=== PATIENT | female | born 1950 | race Caucasian/White ===

== ENCOUNTER 2017-04-01 18:13 | Emergency (ER) | payer MEDICAID, MEDICARE, OTHER ==
[~2017-04-01] VITALS: Ht 167.6 cm; Wt 61.2 kg
[~2017-04-01 18:13] MED LIST: AMLO10TA4 PO; AMYL1CAP58 PO; ARIP2TAB9 PO; BENA20TA2 PO; BUPR150T12 PO; DEXL30CA3 PO; DULO20CA PO; ESCI10TA PO; FURO20TA4 PO; GABA300C PO; HYDR12.519 PO; HYDR1TAB PO; LEVO25TA9 PO; METO5TAB87 PO; OMEP20CA10 PO; PRIM50TA PO; RANI150C4 PO; RISE35TA PO; SIMV20TA6 PO
--- NOTE | 2017-04-01 18:22 | NUR ---
PT BIBRA FROM HOME TO ER BED 12. PRESENTS W/ R FOOT LAC APPROX 5 CM W/ MINIMAL BLEEDING NOTED. PT NOT UTD W/ TETANUS SHOT. PT AAOX3. NAD NOTED. AWAITING MD WALKER.
[2017-04-01] MEDS ORDERED: LIDOCAINE 1%-EPI 1:100,000 50 ML VIAL IJ ONE (18:30)
[2017-04-01] MEDS ORDERED: TDAP [DIPH/PERTUSSIS/TET] 0.5 ML VIAL IM ONE ×2 (18:30→19:36)
--- NOTE | 2017-04-01 18:54 | NUR ---
RADIOLOGY AT BEDSIDE FOR R FOOT XRAY.
[2017-04-01] MEDS ORDERED: LIDOCAINE 1% INJ 50 ML MDV IJ ONE (19:21)
--- NOTE | 2017-04-01 19:29 | NUR ---
JUSTO GLYNN FOR FOOT X RAY RESULT
--- NOTE | 2017-04-01 19:50 | NUR ---
JESICA CNC MILL OPERATOR AT BEDSIDE FOR LAC REPAIR.
[2017-04-01] MEDS ORDERED: ACETAMINOPHEN ES 500 MG TABLET PO ONE (20:30)
[2017-04-01] MEDS ORDERED: CEPHALEXIN MONOHYDRATE 500 MG CAPSULE PO ONE ×2 (20:30→20:39)
[2017-04-01] MEDS ORDERED: ACETAMINOPHEN ES 500 MG TABLET ONE (20:39)
--- NOTE | 2017-04-01 20:44 | NUR ---
WOUND CARE PROVIDED. PT PROVIDED W/ CROUTCHES. D/C HOME STABLE CONDITION.
[2017-04-01 20:46] VITALS: BP 132/80
== END 2017-04-01 20:47 | disposition home or self-care (01) ==
LOC: ER 18:15
DX: S91.311A Laceration without foreign body, right foot, initial encounter (principal); I10 Essential (primary) hypertension; F17.210 Nicotine dependence, cigarettes, uncomplicated; Z98.82 Breast implant status; Z88.0 Allergy status to penicillin; Z88.6 Allergy status to analgesic agent; W22.8XXA Striking against or struck by other objects, initial encounter; Y93.89 Activity, other specified; Y92.89 Other specified places as the place of occurrence of the external cause; Y99.8 Other external cause status
CPT/HCPCS: 12002; 73630; 90471; 90715; 99284; A4606; A6402; J3490; Z7610

== ENCOUNTER 2018-03-02 12:32 | Emergency (ER) | payer OTHER ==
[~2018-03-02] VITALS: Ht 167.6 cm; Wt 63.5 kg
[~2018-03-02 12:32] MED LIST changes: +ARIP2TAB3 PO; -ARIP2TAB9 PO; -BENA20TA2 PO; +BENA20TA9 PO
--- NOTE | 2018-03-02 12:35 | NUR ---
AAOX3, BIB RA 881 FROM HOME, RIGHT HIP PAIN SINCE LAST NIGHT,NO TRAUMA. RR IS EVEN AND UNLABORED WITH NAD NOTED. SKIN IS WARM AND DRY. AWAITING MD FOR EVAL.
[2018-03-02] MEDS ORDERED: ONDANSETRON 4 MG TAB.RAPDIS PO ONE (13:30)
[2018-03-02] MEDS ORDERED: MORPHINE SULFATE INJ 2 MG/ML DISP.SYRIN IM ONE (13:30)
--- NOTE | 2018-03-02 13:45 | NUR ---
Patient is resting comfortably in bed with eyes closed. Easily aroused. VSS
[2018-03-02] MEDS ORDERED: ONDANSETRON 4 MG TAB.RAPDIS ONE (13:53)
[2018-03-02] MEDS ORDERED: MORPHINE SULFATE INJ 4 MG/ML DISP.SYRIN ONE (13:53)
--- NOTE | 2018-03-02 15:17 | NUR ---
Patient discharged to home in stable condition. Written and verbal after care instructions given. Patient verbalizes understanding of instruction.
[2018-03-02 15:20] VITALS: BP 116/76
== END 2018-03-02 15:21 | disposition home or self-care (01) ==
LOC: ER 12:34
DX: M25.551 Pain in right hip (principal); M25.552 Pain in left hip; I10 Essential (primary) hypertension; F12.90 Cannabis use, unspecified, uncomplicated; F17.210 Nicotine dependence, cigarettes, uncomplicated; Z98.82 Breast implant status; Z88.0 Allergy status to penicillin; Z88.6 Allergy status to analgesic agent; Z60.2 Problems related to living alone; Z79.899 Other long term (current) drug therapy
CPT/HCPCS: 73521; A4606; J2270; Q0162; Z7610

== ENCOUNTER 2018-07-02 15:02 | Emergency (ER) | payer MEDICARE, MEDICAID ==
[~2018-07-02] VITALS: Ht 165.1 cm; Wt 68.9 kg
--- NOTE | 2018-07-02 15:09 | NUR ---
PT BIBRA FROM HOME C/O CHEST PAIN WHILE WATCHING TV. GIVEN NTG AND ASA SATELLITE TV TECHNICIAN. PT AAOX4, RESPIRATIONS EVEN AND UNLABORED, NO SOB, NAD NOTED. VSS. PT ON MONITOR, MD AT BEDSIDE
[2018-07-02 15:43] LABS: BASOPHILS # (AUTO) 0.1 /CMM (0.0-0.2); BASOPHILS % (AUTO) 0.5 % (0.0-2.0); EOSINOPHILS % (AUTO) 0.3 % (0.0-6.0); HEMATOCRIT 39 % (33-45); HEMOGLOBIN 12.9 g/dL (11.5-14.8); LYMPHOCYTES # (AUTO) 16.9 /CMM (0.8-4.8); LYMPHOCYTES % (AUTO) 74.1 % (20.0-44.0); MEAN CORPUSCULAR HGB CONC 33 g/dl (31.0-36.0); MEAN CORPUSCULAR VOLUME 95 fL (82-100); MONOCYTES # (AUTO) 0.6 /CMM (0.1-1.30); MONOCYTES % (AUTO) 2.6 % (2.0-12.0); NEUTROPHILS # (AUTO) 5.1 /CMM (1.8-8.9); NEUTROPHILS % (AUTO) 22.5 % (43.0-81.0); PLATELET COUNT (AUTO) 138 /CMM (150-450); RED BLOOD CELL COUNT(AUTO) 4.13 MIL/uL (4.0-5.2); WHITE BLOOD COUNT (AUTO) 22.8 K/uL (4.3-11.0)
[2018-07-02 15:55] LABS: CALCIUM, SERUM 8.4 mg/dL (8.5-10.1); CARBON DIOXIDE 29 mmol/L (21-32); CHLORIDE 107 mmol/L (98-107); CREATININE 0.9 mg/dL (0.6-1.3); GLUCOSE 91 mg/dL (74-106); POTASSIUM 4.6 mmol/L (3.5-5.1); SODIUM SERUM 140 mmol/L (136-145); UREA NITROGEN, BLOOD 20 mg/dL (7-18)
[2018-07-02 17:08] LABS: BAND % (MANUAL) 1 % (0.0-5.0); BASOPHILS % (MANUAL) 0 % (0.0-2.0); EOSINOPHILS % (MANUAL) 0 % (0-4); LYMPHOCYTES % (MANUAL) 66 % (16-48); MONOCYTES % (MANUAL) 2 % (0-11.0); NEUTROPHILS % (MANUAL) 31 (42-76)
--- NOTE | 2018-07-02 17:24 | NUR ---
Patient discharged to home in stable condition. Written and verbal after care instructions given. Patient verbalizes understanding of instruction. IV removed. Catheter intact and site benign. Pressure and 4x4 applied to site. No bleeding noted.
[2018-07-02 17:25] VITALS: BP 119/80
== END 2018-07-02 17:27 | disposition home or self-care (01) ==
LOC: ER 15:10
DX: R07.89 Other chest pain (principal); D72.829 Elevated white blood cell count, unspecified; I10 Essential (primary) hypertension; M79.606 Pain in leg, unspecified; F10.10 Alcohol abuse, uncomplicated; F17.200 Nicotine dependence, unspecified, uncomplicated; F12.10 Cannabis abuse, uncomplicated; Y90.9 Presence of alcohol in blood, level not specified; Z98.86 Personal history of breast implant removal; Z88.0 Allergy status to penicillin; Z88.6 Allergy status to analgesic agent; Z60.2 Problems related to living alone
CPT/HCPCS: 36415; 71045-TC; 80048-TC; 84484-TC; 85025-TC

== ENCOUNTER 2018-08-04 11:21 | Emergency (ER) | payer MEDICAID, MEDICARE, OTHER ==
[~2018-08-04] VITALS: Ht 165.1 cm; Wt 73.5 kg
--- NOTE | 2018-08-04 11:40 | NUR ---
SEEN AND EXAMINED BY DR. DE LA GARZA.
[2018-08-04] MEDS ORDERED: FAMOTIDINE/PF INJ 20 MG/2 ML VIAL IV ONE (11:51)
[2018-08-04] MEDS ORDERED: methylPREDNISolone SOD SUCC 125 MG/2ML VIAL ONE (11:51)
[2018-08-04] MEDS ORDERED: diphenhydrAMINE HCL 50 MG/ML VIAL ONE (11:51)
[2018-08-04] MEDS: diphenhydrAMINE HCL 50 MG/ML VIAL IV ONE (11:56)
[2018-08-04] MEDS: FAMOTIDINE/PF INJ 20 MG/2 ML VIAL IV ONE (11:56)
[2018-08-04] MEDS: methylPREDNISolone SOD SUCC 125 MG/2ML VIAL IV ONE (11:57)
--- NOTE | 2018-08-04 11:57 | NUR ---
ALL MEDS GIVEN, KEPT RESTED AND COMFORTABLE, WILL CONTINUE TO MONITOR.
--- NOTE | 2018-08-04 12:58 | NUR ---
PT IS ASLEEP ON BED, EASILY AROUSABLE AND NO NOTED ITCHNESS.
[2018-08-04 13:50] VITALS: BP 133/72
--- NOTE | 2018-08-04 13:50 | NUR ---
IV removed. Catheter intact and site benign. Pressure and 4x4 applied to site. No bleeding noted.Patient discharged to home in stable condition. Written and verbal after care instructions given. Patient verbalizes understanding of instruction.
== END 2018-08-04 13:51 | disposition home or self-care (01) ==
LOC: ER 11:29
DX: L50.9 Urticaria, unspecified (principal); I10 Essential (primary) hypertension; F10.10 Alcohol abuse, uncomplicated; F12.10 Cannabis abuse, uncomplicated; F17.210 Nicotine dependence, cigarettes, uncomplicated; Y90.9 Presence of alcohol in blood, level not specified; Z60.2 Problems related to living alone; Z98.82 Breast implant status; Z88.6 Allergy status to analgesic agent
CPT/HCPCS: 96374; 96375; 99283; A4606; J1200; J2930; J3490

== ENCOUNTER 2019-07-02 09:23 | Inpatient (IN) | payer OTHER ==
[~2019-07-02] VITALS: Ht 162.6 cm; Wt 62.6 kg
[~2019-07-02 09:23] MED LIST changes: -OMEP20CA10 PO; +OMEP20CA15 PO; +SIMV-46 PO; -SIMV20TA6 PO
--- NOTE | 2019-07-02 09:34 | NUR ---
bibra home c/o pressure like chest pain upon waking up at around 0700. Patient presented with IV line on left ac G20. Attached to the playground monitor, changed into gown. Dr. Mcfarland at bedside for eval. Patient's blood drawn and sent to lab.
--- NOTE | 2019-07-02 09:35 | NUR ---
BLOOD DRAWN SENT TO LAB
--- NOTE | 2019-07-02 09:38 | NUR ---
EMT TECH AT BEDSIDE FOR EKG.
[2019-07-02 09:44] LABS: BASOPHILS # (AUTO) 0.1 /CMM (0.0-0.2); BASOPHILS % (AUTO) 0.4 % (0.0-2.0); EOSINOPHILS % (AUTO) 0.3 % (0.0-6.0); HEMATOCRIT 40 % (33-45); LYMPHOCYTES # (AUTO) 14.5 /CMM (0.8-4.8); LYMPHOCYTES % (AUTO) 68.8 % (20.0-44.0); MEAN CORPUSCULAR HGB CONC 33 g/dl (31.0-36.0); MEAN CORPUSCULAR VOLUME 93 fL (82-100); MONOCYTES # (AUTO) 0.6 /CMM (0.1-1.30); MONOCYTES % (AUTO) 2.6 % (2.0-12.0); NEUTROPHILS # (AUTO) 5.9 /CMM (1.8-8.9); NEUTROPHILS % (AUTO) 27.9 % (43.0-81.0); PLATELET COUNT (AUTO) 154 /CMM (150-450)
--- NOTE | 2019-07-02 09:45 | NUR ---
PROGRAM CLINICIAN AT BEDSIDE FOR XRAY
[2019-07-02 09:48] LABS: CARBON DIOXIDE 26 mmol/L (21-32); CHLORIDE 105 mmol/L (98-107); CREATININE 0.9 mg/dL (0.6-1.3); GLUCOSE 101 mg/dL (74-106); POTASSIUM 3.8 mmol/L (3.5-5.1); SODIUM SERUM 141 mmol/L (136-145); UREA NITROGEN, BLOOD 20 mg/dL (7-18)
[2019-07-02 09:54] LABS: ALANINE AMINOTRANSFERASE 26 U/L (12-78); ALBUMIN 3.5 g/dL (3.4-5.0); ALKALINE PHOSPHATASE 90 U/L (46-116); ASPARTATE AMINOTRANSFERASE 23 U/L (15-37); BILIRUBIN,DIRECT 0.1 mg/dL (0.0-0.2); BILIRUBIN,TOTAL 0.5 mg/dL (0.2-1.0); TOTAL PROTEIN, SERUM 6.6 g/dL (6.4-8.2)
[2019-07-02 10:15] LABS: LYMPHOCYTES % (MANUAL) 69 % (16-48); MONOCYTES % (MANUAL) 1 % (0-11.0); NEUTROPHILS % (MANUAL) 30 (42-76)
[2019-07-02 11:05] LABS: APPEARANCE,URINE Clear (CLEAR); BILIRUBIN,URINE Negative (NEGATIVE); BLOOD, URINE Trace-lysed Ery/uL (NEGATIVE); COLOR,URINE Yellow (YELLOW); KETONES,URINE Negative (NEGATIVE); LEUKOCYTE ESTERASE ,URINE Negative (NEGATIVE); NITRITE, URINE Negative (NEGATIVE); PROTEIN,URINE Negative (NEGATIVE); UGLUCOSE Negative (NEGATIVE)
[2019-07-02 11:08] LABS: BACTERIA,URINE None seen /HPF (None Seen); SQUAMOUS EPITHELIAL CELL,UR Rare /HPF (None Seen); WBC,URINE 0-2 /HPF (0-3)
--- NOTE | 2019-07-02 11:30 | NUR ---
[facility] SPECIAL EDUCATION MATH TEACHER INFORMED BY ADMITTING REGARDING ADMISSION,CLINICALS FAXED
--- NOTE | 2019-07-02 11:40 | NUR ---
CALLED ADMITTING, NO UPDATE FROM [facility] GOLF COURSE KEEPER REGARDING TRANSFER
--- NOTE | 2019-07-02 11:45 | NUR ---
Gary tyson in [facility] - 07/02/19 at 1145 by JAKY CALLED UROLOGIST RASHEL APODACA VOICEMAIL
--- NOTE | 2019-07-02 13:28 | NUR ---
SPOKE TO DR JOHNSON REGARDING ADMISSION, STATES WILL CALL [facility] AND FOLLOW UP
--- NOTE | 2019-07-02 13:50 | NUR ---
DR. JOHNSON- PAGED - TO CALL [phone]
--- NOTE | 2019-07-02 13:58 | NUR ---
NO CALL BACK FROM DR JOHNSON REGARDING TRANSFER
--- NOTE | 2019-07-02 14:38 | NUR ---
REPORT GIVEN TO KIMI MONIQUE.
[2019-07-02] MEDS ORDERED: IV NS 0.9% 1,000 ML IV PRN (14:39)
--- NOTE | 2019-07-02 14:50 | NUR ---
PATIENT TRANSFERRED TO ROOM 309-1 VIA ACLS PROTOCOL. NO DISTRESS NOTED. AMBULATORY WITH STEADY GAIT.
[2019-07-02] MEDS ORDERED: MAGNESIUM HYDROXIDE 30 ML UDC PO PRN (15:00)
[2019-07-02] MEDS ORDERED: Z GUARD REMEDY 2 OZ OINT TP PRN (15:00)
[2019-07-02] MEDS ORDERED: ONDANSETRON HCL/PF 4 MG/2 ML VIAL IVP PRN (15:00)
[2019-07-02] MEDS ORDERED: HYDROCODONE/APAP 5/325MG 1 EACH TABLET PO PRN (15:00)
[2019-07-02] MEDS ORDERED: MAG HYDROX/AL HYDROX/SIMETH 30 ML UDC PO PRN (15:00)
[2019-07-02] MEDS ORDERED: ACETAMINOPHEN 325 MG TABLET PO PRN (15:00)
--- NOTE | 2019-07-02 15:00 | NUR ---
TELE/RN NOTE RECEIVED THE PATIENT ON A GURNEY. ASSISTED THE PATIENT TO GET TO BED. PATIENT IS ALERT AND ORIENTED X4. IN ROOM AIR AND DENIES SOB. RESPIRATION REGULAR AND UNLABORED. DENIES PAIN. THE PATIENT IS IN NO APPARENT DISTRESS. LAC G 18 PATENT AND SALINE LOCKED. PATIENT IS GIVEN ORIENTATION TO THE ROOM AND UNIT, SHE VERBALIZED UNDERSTANDING. BED LOW AND LOCKED. SIDE RAILS UP X3. CALL LIGHT WITHIN REACH. WILL CONTINUE TO MONITOR.
--- NOTE | 2019-07-02 15:51 | NUR ---
TELE/RN NOTE RECEIVED ORDER FROM DR POWELL FOR CARDIAC DIET. THE ORDER IS READ BACK, VERIFIED. NOTED AND CARRIED OUT.
[2019-07-02 16:00] VITALS: BP 131/86
--- NOTE | 2019-07-02 18:11 | NUR ---
TELE/RN NOTE THE PATIENT IS ALERT AND ORIENTED X4. DENIES SOB. RESPIRATION REGULAR AND UNLABORED. PATIENT IS IN ROOM AIR. DENIES PAIN. THE PATIENT IS IN NO APPARENT DISTRESS. LAC G 18 PATENT AND SALINE LOCKED. BED LOW AND LOCKED. SIDE RAILS UP X3. CALL LIGHT WITHIN REACH. WILL ENDORSE TO TOOLMAKER GRADE THREE. Addendum: 07/02/19 at 1812 by RICHARD HONG RN TELE/RN NOTE EXTERNAL TELE BOX READING IS SR 78 WITH PAC AND PVC.
--- NOTE | 2019-07-02 19:00 | NUR ---
RECIEVED in bed alert and orientated X3. She commented she wants to go home and she is dressed in her street clothes. Instructed her to stay in bed and we will decide tomorrow. She appears somewhat confused of the situation. She know her name and where she is and that it is night time, but will say "what should I do now" "When should I go" Sitter at the bedside
[2019-07-02 20:00] VITALS: BP 156/84
--- NOTE | 2019-07-03 06:08 | NUR ---
Ending NOTES: Noted about 1899 forgetfulness and some confusion setting in. She wanted to go home , but she knew she was in a hospital. She dressed in her street clothes because ahe was adament she was going home. She is cooperative and would go back to bed when we told her, she moves fast when she gets OOB sitter at the bedside, d/t she walks to the elevator "Because she is Going Home" she is pleasent . On the monitor she is SR with PAC + PVCs Room air
--- NOTE | 2019-07-03 07:00 | NUR ---
Tele/RN Opening Note Received Pt AO x 4, able to responds all stimuli. Denies pain or discomfort, respiratory even and unlabored, intact IV site. Kept lower position of the bed with elevated HOB. Sitter at bed side. Call light within reach, will continue to monitor.
[2019-07-03 08:00] VITALS: BP 154/98
[2019-07-03] MEDS ORDERED: ASPIRIN 81 MG TAB.CHEW PO SCH ×2 (09:00→11:00)
[2019-07-03] MEDS ORDERED: ATORVASTATIN 10 MG TABLET PO SCH (09:00)
[2019-07-03] MEDS ORDERED: IOHEXOL-350 100 ML VIAL IV ONE (11:30)
[2019-07-03] MEDS ORDERED: IV NS 0.9% 250 ML IV ONE (11:30)
[2019-07-03] MEDS ORDERED: METOPROLOL TARTRATE INJ 5 MG/5 ML AMPUL ONE (11:43)
[2019-07-03] MEDS: METOPROLOL TARTRATE INJ 5 MG/5 ML AMPUL IVP PRN ×2 (11:48→11:53)
[2019-07-03] MEDS ORDERED: NITROGLYCERIN 0.4 MG/TAB BOTTLE SL ONE (12:00)
[2019-07-03] MEDS ORDERED: NITROGLYCERIN 4.9 GM SPRAY SL ONE (12:00)
[2019-07-03] MEDS ORDERED: METOPROLOL TARTRATE 50 MG TABLET PO SCH (12:00)
--- NOTE | 2019-07-03 12:10 | NUR ---
Patient back from CT angiogram, on stable condition, denies any pain or discomfort. V/S:130/74, p-57, t-97.3, r-18.
[2019-07-03 15:16] LABS: BASOPHILS # (AUTO) 0.1 /CMM (0.0-0.2); BASOPHILS % (AUTO) 0.3 % (0.0-2.0); EOSINOPHILS % (AUTO) 0.2 % (0.0-6.0); HEMATOCRIT 39 % (33-45); HEMOGLOBIN 12.5 g/dL (11.5-14.8); MEAN CORPUSCULAR HGB CONC 32 g/dl (31.0-36.0); MEAN CORPUSCULAR VOLUME 93 fL (82-100); MONOCYTES # (AUTO) 0.3 /CMM (0.1-1.30); MONOCYTES % (AUTO) 1.7 % (2.0-12.0); NEUTROPHILS # (AUTO) 5.4 /CMM (1.8-8.9); NEUTROPHILS % (AUTO) 28.8 % (43.0-81.0); PLATELET COUNT (AUTO) 134 /CMM (150-450); RED BLOOD CELL COUNT(AUTO) 4.14 MIL/uL (4.0-5.2); WHITE BLOOD COUNT (AUTO) 18.8 K/uL (4.3-11.0)
[2019-07-03 15:27] LABS: CALCIUM, SERUM 8.5 mg/dL (8.5-10.1); CREATININE 0.9 mg/dL (0.6-1.3); MAGNESIUM 2.2 mg/dL (1.8-2.4); PHOSPHORUS 4.1 mg/dL (2.5-4.9); POTASSIUM 4.5 mmol/L (3.5-5.1)
[2019-07-03 16:00] VITALS: BP 133/81
--- NOTE | 2019-07-03 16:00 | NUR ---
Dr. Gómez made aware regarding CT angiogram result was negative.
--- NOTE | 2019-07-03 16:45 | NUR ---
Given discharge instruction include medications schedule, side effect, smoking cession. Pt denies chest pain or any discomfort. Skin is warm to touch, no sob or distress observed. Pt left facility accompanied by daughter and staff to the private car.
== END 2019-07-03 16:51 | disposition home or self-care (01) | DRG 313 ==
LOC: ER 09:24 → TELE 15:08
PROVIDERS: ADMIT Internal Medicine; ATTEND Internal Medicine
DX: R07.89 Other chest pain (principal); N17.0 Acute kidney failure with tubular necrosis; J44.9 Chronic obstructive pulmonary disease, unspecified; E78.5 Hyperlipidemia, unspecified; D72.829 Elevated white blood cell count, unspecified; I10 Essential (primary) hypertension; Z98.82 Breast implant status; F17.210 Nicotine dependence, cigarettes, uncomplicated
CPT/HCPCS: 36415; 71045-TC; 75574; 80048-TC; 80076-TC; 81000-TC; 82378; 83735-TC; 84100-TC; 84484-TC; 85025-TC; 87040-TC; 87081-TC; 93307-TC; G0378; J3490; J7030; J7050; Q9967

== ENCOUNTER 2019-10-30 11:20 | Emergency (ER) | payer OTHER ==
[~2019-10-30] VITALS: Ht 165.1 cm; Wt 61.2 kg
[2019-10-30] MEDS ORDERED: LIDOCAINE HCL/PF 1% 30 ML SDV ONE (11:47)
--- NOTE | 2019-10-30 11:50 | NUR ---
BIBS FROM HOME TO ER BED 12. AAOX4. NOT IN RESP DISTRESS. AMBUALTORY. CAME IN FOR LACERATION ON R HAND 2ND DIGIT FINGER S/P DOG BITE LAST NIGHT. NOTED 2.5 CM LONG WOUND, UNAPPROXIMATED, NOT ACTIVELY BLEEDING, NO DISCHARGE. ROM INTACT. DOG BELONGS TO PT AND WAS REPORT NOT UPTO DATE WITH SHOT. MD WAS AT BEDSIDE FOR EVAL. EMT AT BEDSIDE FOR WOUND CLEANING. LACERATION KIT AT BEDSIDE
[2019-10-30] MEDS ORDERED: TDAP [DIPH/PERTUSSIS/TET] 0.5 ML VIAL IM ONE ×2 (11:57→12:00)
--- NOTE | 2019-10-30 12:36 | NUR ---
Patient discharged to home in stable condition. Written and verbal after care instructions given. Patient verbalizes understanding of instruction. Pt ambulatory with a steady gait
[2019-10-30 12:37] VITALS: BP 104/69
== END 2019-10-30 12:38 | disposition home or self-care (01) ==
LOC: ER 11:20
DX: S61.210A Laceration without foreign body of right index finger without damage to nail, initial encounter (principal); I10 Essential (primary) hypertension; F17.210 Nicotine dependence, cigarettes, uncomplicated; Z98.890 Other specified postprocedural states; Z88.0 Allergy status to penicillin; Z88.6 Allergy status to analgesic agent; Z60.2 Problems related to living alone; W54.0XXA Bitten by dog, initial encounter; Y93.89 Activity, other specified; Y92.89 Other specified places as the place of occurrence of the external cause; Y99.8 Other external cause status
CPT/HCPCS: 12002; 90471; 90715; 99283; J3490

== ENCOUNTER → 2019-11-01 | Emergency (ER) | payer OTHER ==
[~2019-11-01] VITALS: Ht 165.1 cm; Wt 60.8 kg
[2019-11-01 10:30] VITALS: BP 133/88
--- NOTE | 2019-11-01 10:55 | NUR ---
WOUND EVALUATED BY DR RUELAS,CLEANSED/DRESSED,TOLERATED WELL
--- NOTE | 2019-11-01 11:06 | NUR ---
Patient discharged to home in stable condition. Written and verbal after care instructions given. Patient verbalizes understanding of instruction.
== END | disposition home or self-care (01) ==
LOC: ER 10:26
DX: S61.210D Laceration without foreign body of right index finger without damage to nail, subsequent encounter (principal); I10 Essential (primary) hypertension; Z98.82 Breast implant status; Z88.0 Allergy status to penicillin; Z88.6 Allergy status to analgesic agent; Z60.2 Problems related to living alone; W54.0XXD Bitten by dog, subsequent encounter
CPT/HCPCS: 99282; A6403

== ENCOUNTER 2020-11-08 09:32 | Emergency (ER) | payer OTHER ==
[~2020-11-08] VITALS: Ht 162.6 cm; Wt 64.0 kg
--- NOTE | 2020-11-08 09:32 | NUR ---
PT NIUBU216 HOME, ABDOMINAL PAIN. PER CAREGIVER NO BM X 2 DAYS. PT IS AAOX3, NOT IN RESPIRATORY DISTRESS, V/S STABLE, KEPT RESTED AND COMFORTABLE. WILL CONTINUE TO MONITOR.
--- NOTE | 2020-11-08 09:40 | NUR ---
PT IV LINE ESTABLISHED BLOOD DRAWN AND SENT TO LAB.
--- NOTE | 2020-11-08 09:44 | NUR ---
SEEN AND EXAMINED BY .
--- NOTE | 2020-11-08 09:47 | NUR ---
FARROWING WORKER AT BEDSIDE FOR XRAY.
[2020-11-08] MEDS ORDERED: MAG HYDROX/AL HYDROX/SIMETH 30 ML UDC ONE (09:51)
[2020-11-08] MEDS ORDERED: LIDOCAINE VISCOUS 2% UD 15 ML UDC ONE (09:51)
[2020-11-08] MEDS ORDERED: FAMOTIDINE/PF INJ 20 MG/2 ML VIAL IV ONE ×2 (09:52→10:00)
--- NOTE | 2020-11-08 09:58 | NUR ---
URINAL GIVEN BUT UNABLE TO PROVIDE URINE SPECIMEN THIS TIME.
[2020-11-08] MEDS ORDERED: IV NS 0.9% 500 ML BAG IV ONE (10:00)
[2020-11-08] MEDS ORDERED: MAG HYDROX/AL HYDROX/SIMETH 30 ML UDC PO ONE (10:00)
[2020-11-08] MEDS ORDERED: LIDOCAINE VISCOUS 2% UD 15 ML UDC MM ONE (10:00)
[2020-11-08 10:02] LABS: BASOPHILS # (AUTO) 0.1 /CMM (0.0-0.2); BASOPHILS % (AUTO) 0.3 % (0.0-2.0); EOSINOPHILS % (AUTO) 0.3 % (0.0-6.0); HEMATOCRIT 42 % (33-45); HEMOGLOBIN 13.5 g/dL (11.5-14.8); LYMPHOCYTES % (AUTO) 78.8 % (20.0-44.0); MEAN CORPUSCULAR HGB CONC 33 g/dl (31.0-36.0); MEAN CORPUSCULAR VOLUME 95 fL (82-100); MONOCYTES # (AUTO) 0.8 /CMM (0.1-1.30); MONOCYTES % (AUTO) 2.5 % (2.0-12.0); NEUTROPHILS # (AUTO) 5.5 /CMM (1.8-8.9); NEUTROPHILS % (AUTO) 18.1 % (43.0-81.0); PLATELET COUNT (AUTO) 181 /CMM (150-450); RED BLOOD CELL COUNT(AUTO) 4.38 MIL/uL (4.0-5.2)
[2020-11-08 10:06] LABS: CALCIUM, SERUM 9.3 mg/dL (8.5-10.1); POTASSIUM 4.7 mmol/L (3.5-5.1); WHITE BLOOD COUNT (AUTO) 30.4 K/uL (4.3-11.0)
[2020-11-08 10:12] LABS: ALBUMIN 3.7 g/dL (3.4-5.0); BILIRUBIN,DIRECT 0.1 mg/dL (0.0-0.2); BILIRUBIN,TOTAL 0.3 mg/dL (0.2-1.0); TOTAL PROTEIN, SERUM 7.2 g/dL (6.4-8.2)
--- NOTE | 2020-11-08 10:15 | NUR ---
PT IS WHEELED TO CT SCAN VIA [facility].
[2020-11-08] MEDS ORDERED: LEVOFLOXACIN 750 MG /D5W 150ML PIGGYBACK IV ONE (10:30)
[2020-11-08] MEDS ORDERED: FLAGYL/NS RTU 500 MG/100 ML PIGGYBACK IV ONE (10:30)
--- NOTE | 2020-11-08 10:33 | NUR ---
COVID SWAB DONE AND SENT TO THE LAB
[2020-11-08] MEDS ORDERED: LEVOFLOXACIN 750 MG /D5W 150ML 150 ML IV ONE (10:34)
[2020-11-08] MEDS ORDERED: METRONIDAZOLE 500MG/ NS 100ML 100 ML IV ONE (10:34)
[2020-11-08 11:04] LABS: LYMPHOCYTES % (MANUAL) 79 % (16-48); MONOCYTES % (MANUAL) 4 % (0-11.0); NEUTROPHILS % (MANUAL) 17 (42-76)
[2020-11-08] MEDS ORDERED: DULO40CA7 PO (11:17)
[2020-11-08] MEDS ORDERED: DONE10TA44 PO (11:17)
[2020-11-08] MEDS ORDERED: METO-357 PO (11:17)
[2020-11-08] MEDS ORDERED: SIMV-46 PO (11:17)
[2020-11-08] MEDS ORDERED: BENA20TA9 PO (11:17)
[2020-11-08] MEDS ORDERED: MEMA10TA56 PO (11:17)
[2020-11-08] MEDS ORDERED: PANT40TA49 PO (11:17)
[2020-11-08 11:22] LABS: BILIRUBIN,URINE NEGATIVE (NEGATIVE); COLOR,URINE YELLOW (YELLOW); LEUKOCYTE ESTERASE ,URINE NEGATIVE (NEGATIVE); NITRITE, URINE NEGATIVE (NEGATIVE); PROTEIN,URINE TRACE mg/dl (NEGATIVE); UGLUCOSE NEGATIVE (NEGATIVE); UROBILINOGEN,URINE 0.2 EU/dL (0.2)
--- NOTE | 2020-11-08 11:28 | NUR ---
LAB CALLED PT COVID RESULT NEGATIVE (-)
--- NOTE | 2020-11-08 11:33 | NUR ---
CAMILA DAUGHTER [phone]
[2020-11-08 11:47] LABS: BACTERIA,URINE Few /HPF (None Seen); SQUAMOUS EPITHELIAL CELL,UR Moderate /HPF (None Seen); WBC,URINE 0-2 /HPF (0-3)
--- NOTE | 2020-11-08 14:19 | NUR ---
GOING TO [facility] BED 207. B # FOR REPORT [phone]/ LANG MONIQUE PENDING TRANSPORT ETA.
--- NOTE | 2020-11-08 14:30 | NUR ---
HEALTH CONCIERGE BY NIKA AT 1600
--- NOTE | 2020-11-08 14:59 | NUR ---
REPORT GIVEN TO ENEIDA REID OF [facility] FOR [facility].
[2020-11-08 16:30] VITALS: BP 127/72
--- NOTE | 2020-11-08 16:40 | NUR ---
REPORT GIVEN TO EMS FOR PT TRANSFER TO [facility].
== END 2020-11-08 16:43 | disposition short-term general hospital (02) ==
LOC: ER 09:33
DX: R10.13 Epigastric pain (principal); K59.00 Constipation, unspecified; D72.829 Elevated white blood cell count, unspecified; F03.90 Unspecified dementia, unspecified severity, without behavioral disturbance, psychotic disturbance, mood disturbance, and anxiety; Z88.6 Allergy status to analgesic agent; Z88.0 Allergy status to penicillin; F17.210 Nicotine dependence, cigarettes, uncomplicated; Z20.822 Contact with and (suspected) exposure to COVID-19
CPT/HCPCS: 36415; 71045; 74176; 76705; 80048; 80076; 81001; 83690; 85007; 85025; 87040 ×2; 87426; 93005; 96361; 96365; 96366; 96368; 96375; 99285; J1956; J3490; J7040; C9803

== ENCOUNTER 2020-11-11 10:49 | Emergency (ER) | payer OTHER ==
[~2020-11-11] VITALS: Ht 162.6 cm; Wt 63.5 kg
[~2020-11-11 10:49] MED LIST changes: -AMLO10TA4 PO; -AMYL1CAP58 PO; -ARIP2TAB3 PO; -BUPR150T12 PO; -DEXL30CA3 PO; +DONE10TA44 PO; -DULO20CA PO; +DULO40CA7 PO; -ESCI10TA PO; -FURO20TA4 PO; -GABA300C PO; -HYDR12.519 PO; -HYDR1TAB PO; -LEVO25TA9 PO; +MEMA10TA56 PO; +METO-357 PO; -METO5TAB87 PO; -OMEP20CA15 PO; +PANT40TA49 PO; -PRIM50TA PO; -RANI150C4 PO; -RISE35TA PO
--- NOTE | 2020-11-11 11:23 | NUR ---
PT TO CT ON ALEJANDRO
--- NOTE | 2020-11-11 11:26 | NUR ---
RAFY TO ER BED 6. AWAKE, ALLERT BUT CONFUSED. AMBULATORY. BROUGHT IN FOR ABDOMINAL PAIN. UPON RECEIVING THE PT SHE IS DENYING TO HAVE AND PAIN. SHE WAS VERBALIZING THAT SHE WANTS TO GO HOME. WAST AT THE BEDSIDE FOR EVAL. ORDERS RECEIVED, NOTED AND CARRIED OUT.
[2020-11-11 11:50] LABS: BASOPHILS # (AUTO) 0.1 /CMM (0.0-0.2); BASOPHILS % (AUTO) 0.4 % (0.0-2.0); EOSINOPHILS % (AUTO) 0.2 % (0.0-6.0); HEMATOCRIT 41 % (33-45); LYMPHOCYTES # (AUTO) 14.5 /CMM (0.8-4.8); LYMPHOCYTES % (AUTO) 65.2 % (20.0-44.0); MEAN CORPUSCULAR HGB CONC 32 g/dl (31.0-36.0); MEAN CORPUSCULAR VOLUME 95 fL (82-100); MONOCYTES % (AUTO) 4.5 % (2.0-12.0); NEUTROPHILS # (AUTO) 6.6 /CMM (1.8-8.9); NEUTROPHILS % (AUTO) 29.7 % (43.0-81.0); PLATELET COUNT (AUTO) 156 /CMM (150-450); RED BLOOD CELL COUNT(AUTO) 4.27 MIL/uL (4.0-5.2); WHITE BLOOD COUNT (AUTO) 22.2 K/uL (4.3-11.0)
[2020-11-11 12:03] LABS: CALCIUM, SERUM 9.9 mg/dL (8.5-10.1); CREATININE 1.3 mg/dL (0.6-1.3); POTASSIUM 3.7 mmol/L (3.5-5.1)
[2020-11-11 12:09] LABS: ALBUMIN 3.7 g/dL (3.4-5.0); BILIRUBIN,DIRECT 0.1 mg/dL (0.0-0.2); BILIRUBIN,TOTAL 0.3 mg/dL (0.2-1.0); TOTAL PROTEIN, SERUM 6.9 g/dL (6.4-8.2)
--- NOTE | 2020-11-11 12:51 | NUR ---
SPOKE WITH [facility] PT'S MENTAL HEALTH ASIAN ART CURATOR WHO CALLED THE PARAMEDICS. ACCORDING TO HER, SHE WAS CRYING AND TOLD HER THAT SHE HAVE ABDOMINAL PAIN. PT WAS NOT COMPLAINING OF ANY PAIN UPON RECEIVING THE PATIENT.
--- NOTE | 2020-11-11 13:05 | NUR ---
WOLF MENDES, ELEPHANT TAMER [phone]
--- NOTE | 2020-11-11 13:05 | NUR ---
MELINDA FLANNERY [facility] [phone]
--- NOTE | 2020-11-11 15:06 | NUR ---
MOVE PACKET TURNED IN.
--- NOTE | 2020-11-11 17:00 | NUR ---
KIRA TORRES ([facility]) - [phone]
--- NOTE | 2020-11-11 17:41 | NUR ---
Patient does not wish to proceed with medical care recommended by Dr. Ruben Amaya. Patient given information related to possible complications, up to and including , which could occur as a result of leaving the hospital at this time. Patient verbalizes understanding of risks involved due to leaving against medical advice. Patient has signed AMA form.
--- NOTE | 2020-11-11 17:42 | NUR ---
pt is being picked up by a family member that was sent by the daughter to do so. Pt do acknowledge that she knows Miriam Pitts. Pt is ambulatory on steady gait.
[2020-11-11 17:49] VITALS: BP 117/65
== END 2020-11-11 17:50 | disposition left against medical advice (07) ==
LOC: ER 10:49
DX: R10.9 Unspecified abdominal pain (principal); F03.90 Unspecified dementia, unspecified severity, without behavioral disturbance, psychotic disturbance, mood disturbance, and anxiety; D72.829 Elevated white blood cell count, unspecified; R41.0 Disorientation, unspecified; I10 Essential (primary) hypertension; F10.10 Alcohol abuse, uncomplicated; F17.200 Nicotine dependence, unspecified, uncomplicated; Y90.9 Presence of alcohol in blood, level not specified; Z60.2 Problems related to living alone; Z98.82 Breast implant status; Z88.0 Allergy status to penicillin; Z88.6 Allergy status to analgesic agent; Z79.899 Other long term (current) drug therapy
CPT/HCPCS: 36415; 71045-TC; 80048-TC; 80076-TC; 83605-TC; 83690-TC; 85025-TC; 87040-TC

== ENCOUNTER 2021-01-05 08:26 | Emergency (ER) | payer OTHER ==
[~2021-01-05] VITALS: Ht 162.6 cm; Wt 62.6 kg
--- NOTE | 2021-01-05 08:42 | NUR ---
BIB RA 39 FROM HOME, "WORSENING RECTAL BLEEDING" PER CAREGIVER. alert and oriented x2. NON LABORED BREATHING. IV @ RIGHT AC BLOOD TAKEN AND SENT TO LAB.
[2021-01-05 08:48] LABS: BASOPHILS # (AUTO) 0.1 K/uL (0.0-0.2); MEAN CORPUSCULAR HGB CONC 32 g/dl (31.0-36.0); NEUTROPHILS # (AUTO) 4.5 K/uL (1.8-8.9); PLATELET COUNT (AUTO) 158 K/uL (150-450)
[2021-01-05 08:51] LABS: BASOPHILS % (AUTO) 0.4 % (0.0-2.0); EOSINOPHILS % (AUTO) 0.6 % (0.0-6.0); HEMATOCRIT 42 % (33-45); HEMOGLOBIN 13.5 g/dL (11.5-14.8); LYMPHOCYTES % (AUTO) 78.6 % (20.0-44.0); MEAN CORPUSCULAR VOLUME 95 fL (82-100); MONOCYTES # (AUTO) 0.6 K/uL (0.1-1.30); MONOCYTES % (AUTO) 2.5 % (2.0-12.0); NEUTROPHILS % (AUTO) 17.9 % (43.0-81.0); WHITE BLOOD COUNT (AUTO) 25.4 K/uL (4.3-11.0)
--- NOTE | 2021-01-05 08:56 | NUR ---
covid swab sent.
[2021-01-05 09:03] LABS: ALBUMIN 3.4 g/dL (3.4-5.0); BILIRUBIN,DIRECT 0.1 mg/dL (0.0-0.2); BILIRUBIN,TOTAL 0.4 mg/dL (0.2-1.0); CALCIUM, SERUM 8.9 mg/dL (8.5-10.1); CREATININE 0.9 mg/dL (0.6-1.3); POTASSIUM 4.5 mmol/L (3.5-5.1); TOTAL PROTEIN, SERUM 6.7 g/dL (6.4-8.2)
[2021-01-05] MEDS ORDERED: CT SWABBABLE VALVE TRANS SET 1 EA INFUS.SET MC ONE (09:35)
[2021-01-05] MEDS ORDERED: IOHEXOL-300 100 ML VIAL IV ONE (09:35)
[2021-01-05] MEDS ORDERED: IV NS 0.9% 250 ML IV ONE (09:35)
[2021-01-05 10:07] LABS: EOSINOPHILS % (MANUAL) 1 % (0-4); LYMPHOCYTES % (MANUAL) 9 % (16-48); MONOCYTES % (MANUAL) 3 % (0-11.0); NEUTROPHILS % (MANUAL) 16 (42-76); REACTIVE LYMPHOCYTES 71 % (0-0)
--- NOTE | 2021-01-05 10:21 | NUR ---
MOVE SHEET SUBMITTED.
--- NOTE | 2021-01-05 10:31 | NUR ---
patient is going to be transfer to [facility].
--- NOTE | 2021-01-05 11:00 | NUR ---
MELINDA FLANNERY [phone] DAUGHTER
--- NOTE | 2021-01-05 11:16 | NUR ---
DR. GRAVES SPEAKING WITH DR. HINDS
--- NOTE | 2021-01-05 11:18 | NUR ---
PATIENT IN BED, RESTING AT THIS TIME.
--- NOTE | 2021-01-05 12:50 | NUR ---
PER LUIS NORIEGA, ACCEPTING INFO: TRANSFER TO [facility] ROOM 304B - # [phone] BLS IS [facility] ETA 20 MINS.
--- NOTE | 2021-01-05 13:02 | NUR ---
report given to Adriano MONIQUE for vane.
--- NOTE | 2021-01-05 14:00 | NUR ---
CALLED [facility] ETA IS 5 MINS
[2021-01-05 14:09] VITALS: BP 110/71
--- NOTE | 2021-01-05 14:10 | NUR ---
patient picked up by private ambulance going to [facility] in no distress.
== END 2021-01-05 14:10 | disposition short-term general hospital (02) ==
LOC: ER 08:33
DX: K92.2 Gastrointestinal hemorrhage, unspecified (principal); D72.829 Elevated white blood cell count, unspecified; I48.91 Unspecified atrial fibrillation; F17.210 Nicotine dependence, cigarettes, uncomplicated; F03.90 Unspecified dementia, unspecified severity, without behavioral disturbance, psychotic disturbance, mood disturbance, and anxiety; I10 Essential (primary) hypertension; J98.11 Atelectasis; Z20.822 Contact with and (suspected) exposure to COVID-19; Z88.0 Allergy status to penicillin; Z79.899 Other long term (current) drug therapy; Z98.82 Breast implant status; I70.0 Atherosclerosis of aorta
CPT/HCPCS: 36415; 71045; 74177; 80048; 80076; 83605; 83690; 85007; 85025; 85730; 86850; 87040 ×2; 87086; 87426; 93005; 99285; J7050; Q9967; C9803

== ENCOUNTER 2021-01-14 04:11 | Inpatient (IN) | payer OTHER ==
[2021-01-14] VITALS (39 sets, daily range): BP systolic 75–108; BP diastolic 27–80
[~2021-01-14] VITALS: Ht 162.6 cm; Wt 59.0 kg
--- NOTE | 2021-01-14 04:16 | NUR ---
pt bibra c/o sob and runny nose xtoday. Pt farsi speaking. Per ems, pt has hx of dementia and daughter unreliable historian. Pt attached to monitor and pox. Skin is warm and moist. MD at bedside for eval. Left ac 20g initiated and blood sent to lab Pt given call light within reach.
[2021-01-14] MEDS ORDERED: methylPREDNISolone SOD SUCC 125 MG/2ML VIAL IV ONE (04:30)
[2021-01-14] MEDS ORDERED: methylPREDNISolone SOD SUCC 125 MG/2ML VIAL ONE (04:42)
[2021-01-14 04:47] LABS: BASOPHILS # (AUTO) 0.1 K/uL (0.0-0.2)
--- NOTE | 2021-01-14 04:47 | NUR ---
Gary tyson in [facility] - 01/14/21 at 0518 by NELLIE rt at bedside
--- NOTE | 2021-01-14 04:47 | NUR ---
Gary tyson in [facility] - 01/14/21 at 0449 by NELLIE xray at bedside
--- NOTE | 2021-01-14 04:47 | NUR ---
rt at bedside
[2021-01-14 04:50] LABS: BASOPHILS % (AUTO) 0.4 % (0.0-2.0); EOSINOPHILS % (AUTO) 0.8 % (0.0-6.0); HEMATOCRIT 39 % (33-45); HEMOGLOBIN 12.8 g/dL (11.5-14.8); LYMPHOCYTES % (AUTO) 49.6 % (20.0-44.0); MEAN CORPUSCULAR HGB CONC 33 g/dl (31.0-36.0); MEAN CORPUSCULAR VOLUME 94 fL (82-100); NEUTROPHILS # (AUTO) 6.9 K/uL (1.8-8.9); NEUTROPHILS % (AUTO) 43.2 % (43.0-81.0); PLATELET COUNT (AUTO) 154 K/uL (150-450); RED BLOOD CELL COUNT(AUTO) 4.12 MIL/uL (4.0-5.2)
[2021-01-14 04:55] LABS: ABG BASE EXCESS 1.2 mmol/L; ABG OXYGEN SATURATION 96.5 % (92.0-98.5); ABG PCO2 47.7 mmHg (35.0-45.0); ABG PH 7.372 (7.350-7.450); ABG PO2 91.8 mmHg (75.0-100.0); AaDO2 80.6 mmHg; COHb 0.8 % (0.5-1.5); MetHb 0.3 % (0.0-1.5); O2Hb 95.4 % (94.0-97.0); SITE, ABG Right Radial; VENT MODE, BG N/C 3L
[2021-01-14 04:58] LABS: CALCIUM, SERUM 8.5 mg/dL (8.5-10.1); CREATININE 0.9 mg/dL (0.6-1.3); POTASSIUM 3.6 mmol/L (3.5-5.1)
--- NOTE | 2021-01-14 04:59 | NUR ---
xray at bedside
[2021-01-14 05:11] LABS: ALBUMIN 3.3 g/dL (3.4-5.0); BILIRUBIN,TOTAL 0.4 mg/dL (0.2-1.0); TOTAL PROTEIN, SERUM 6.8 g/dL (6.4-8.2)
--- NOTE | 2021-01-14 05:19 | NUR ---
sent urine and covid swabs to lab
[2021-01-14] MEDS ORDERED: LEVOFLOXACIN 750 MG /D5W 150ML 150 ML IV ONE ×2 (05:20→05:30)
[2021-01-14 05:31] LABS: D-DIMER 0.66 mg/L(FEU (0.17-0.50)
[2021-01-14 05:35] LABS: BILIRUBIN,URINE MODERATE (NEGATIVE); COLOR,URINE BROWN (YELLOW); LEUKOCYTE ESTERASE ,URINE TRACE (NEGATIVE); NITRITE, URINE POSITIVE (NEGATIVE); PH,URINE 6.5 (5.0-8.0); PROTEIN,URINE 100 mg/dl (NEGATIVE); UGLUCOSE NEGATIVE (NEGATIVE)
[2021-01-14 05:53] LABS: MONOCYTES % (MANUAL) 6 % (0-11.0); NEUTROPHILS % (MANUAL) 49 (42-76)
[2021-01-14 05:54] LABS: LYMPHOCYTES % (MANUAL) 45 % (16-48)
[2021-01-14 06:04] LABS: BACTERIA,URINE Few /HPF (None Seen); RBC,URINE 51-80 /HPF (0-2); SQUAMOUS EPITHELIAL CELL,UR Few /HPF (None Seen)
[2021-01-14] MEDS ORDERED: IV NS 0.9% 250 ML IV ONE (06:56)
[2021-01-14] MEDS ORDERED: IOHEXOL-350 100 ML VIAL IV ONE (06:56)
--- NOTE | 2021-01-14 07:01 | NUR ---
taken to radiology
--- NOTE | 2021-01-14 09:25 | NUR ---
received a call from Austin ([facility] ) and report given, will call back for MD to MD.
[2021-01-14] MEDS ORDERED: IPRATROPIUM NEB FS 0.5 MG/2.5 ML AMPUL.NEB ONE (09:45)
[2021-01-14] MEDS ORDERED: ALBUTEROL FS 2.5 MG/0.5 ML VIAL.NEB ONE (09:45)
--- NOTE | 2021-01-14 09:49 | NUR ---
OSITO [phone].
[2021-01-14] MEDS ORDERED: ALBUTEROL FS 2.5 MG/3 ML VIAL.NEB ONE (09:58)
[2021-01-14] MEDS ORDERED: ALBUTEROL FS 2.5 MG/0.5 ML VIAL.NEB NEB ONE (10:00)
[2021-01-14] MEDS ORDERED: ALBUTEROL FS 2.5 MG/3 ML VIAL.NEB CONTNEB ONE (10:00)
[2021-01-14] MEDS ORDERED: IPRATROPIUM NEB FS 0.5 MG/2.5 ML AMPUL.NEB NEB ONE (10:00)
[2021-01-14] MEDS ORDERED: FUROSEMIDE 40 MG/4 ML VIAL ONE (10:08)
--- NOTE | 2021-01-14 10:15 | NUR ---
RT POST ABG RESULTS SHOWN TO DR. ABEL. PLACED PT ON BIPAP WITH FOLLOWING SETTINGS: ST 15/, RR 18, 50%. WILL CONTINUE TO MONITOR THE PATIENT CLOSELY. RN NOTIFIED AND AWARE. Addendum: 01/14/21 at 1529 by SOTERO BUSTILLO RT Amended: Links added.
[2021-01-14] MEDS ORDERED: FUROSEMIDE 40 MG/4 ML VIAL IV ONE (10:30)
[2021-01-14] MEDS ORDERED: ALBU18HF2 INH (10:34)
[2021-01-14] MEDS ORDERED: ARIP2TAB19 PO (10:34)
[2021-01-14] MEDS ORDERED: TRAZ-182 PO (10:34)
[2021-01-14] MEDS ORDERED: PROP10TA68 PO (10:34)
[2021-01-14] MEDS ORDERED: ASPI-1169 PO (10:34)
[2021-01-14] MEDS ORDERED: AMOX1TAB16 PO (10:34)
[2021-01-14] MEDS ORDERED: GUAI5SYR PO (10:34)
[2021-01-14] MEDS ORDERED: QUET25TA PO (10:34)
[2021-01-14] MEDS ORDERED: HYDR12.55 PO (10:34)
[2021-01-14] MEDS ORDERED: TRAM50TA2 PO (10:34)
[2021-01-14 11:13] LABS: ABG BASE EXCESS -4.7 mmol/L; ABG OXYGEN SATURATION 98.3 % (92.0-98.5); ABG PCO2 88.6 mmHg (35.0-45.0); ABG PH 7.102 (7.350-7.450); ABG PO2 157.3 mmHg (75.0-100.0); AaDO2 467.1 mmHg; COHb 0.8 % (0.5-1.5); MetHb 0.4 % (0.0-1.5); O2Hb 97.1 % (94.0-97.0); SITE, ABG Right Radial; VENT MODE, BG HHN TX AT 60%
[2021-01-14] MEDS ORDERED: IPRATROPIUM NEB FS 0.5 MG/2.5 ML AMPUL.NEB NEB PRN (11:30)
[2021-01-14] MEDS ORDERED: ALBUTEROL FS 2.5 MG/0.5 ML VIAL.NEB NEB PRN (11:30)
[2021-01-14] MEDS ORDERED: DEXTROSE 50%-WATER 50 ML DISP.SYRIN IV PRN (12:00)
--- NOTE | 2021-01-14 12:15 | NUR ---
RT POST ABG RESULTS SHOWN TO PLACED PT ON 3LPM O2 VIA NC. SpO2 98%, HR 65. NO SIGNS OF DISTRESS NOTED AT THIS TIME. RN NOTIFIED AND AWARE OF CHANGES. WILL CONTINUE TO MONITOR THE PT CLOSELY FOR ANY CHRISTIAN. Addendum: 01/14/21 at 1529 by SOTERO BUSTILLO RT Amended: Links added.
[2021-01-14 12:43] LABS: ABG BASE EXCESS -0.3 mmol/L; ABG OXYGEN SATURATION 98.9 % (92.0-98.5); ABG PCO2 47.9 mmHg (35.0-45.0); ABG PH 7.349 (7.350-7.450); AaDO2 96.6 mmHg; COHb 0.7 % (0.5-1.5); MetHb 0.4 % (0.0-1.5); O2Hb 97.8 % (94.0-97.0); SITE, ABG Left Radial
[2021-01-14] MEDS ORDERED: AMLODIPINE BESYLATE 5 MG TABLET PO SCH (13:00)
--- NOTE | 2021-01-14 13:00 | NUR ---
RN NOTE PT REPORT RECEIVED FROM ENEIDA LARSEN, AT 1230. PT A/Ox1, CONFUSED, BROUGHT UP TO ICU ROOM 255 BREATHING NC 3L, SPO2 92-96%, NO S/S OF RESP DISTRESS OR SOB, BREATHING EVEN AND UNLABORED. PT ON BEDSIDE MONITOR READING NSR FROM 50-60s. PT DENIES PAIN. PT BILAT SOFT WRIST RESTRAINTS ON, PT TRIES TO PULL OUT IV LINES AND PAIZ CATH, CMS INTACT. PT LAC #18 AND RT WRIST #20 FLUSHED AND PATENT. PT PAIZ CATH DRAINING CATRACHITA URINE TO GRAVITY. PT SKIN IS INTACT, SACRAL REDNESS NOTED AND LT ARM BRUISING. ALL PT SAFETY PRECAUTIONS IN PLACE, WILL CONT TO MONITOR Addendum: 01/14/21 at 1512 by MARIA TERESA LUNA RN [id number] PT VITALS: HR 73, BP 100/44, RR 18, SPO2 93%, T 98.4
--- NOTE | 2021-01-14 13:07 | NUR ---
report given to Eugene castro for vane.
--- NOTE | 2021-01-14 13:08 | NUR ---
patient off bipap and transition to N3lpm via NC with 02 saturation of 97% as MD ordered.
--- NOTE | 2021-01-14 13:10 | NUR ---
wheeled patient via gurney accompanied by RN and emt in no distress. Rn assigned to patient at bedside to assume care.
[2021-01-14] MEDS: ENOXAPARIN SODIUM 40 MG/0.4 ML DISP.SYRIN SQ SCH (14:17)
[2021-01-14] MEDS: BLOOD SUGAR DIAGNOSTIC 1 EACH STRIP VI SCH ×3 (14:26→22:06)
[2021-01-14] MEDS ORDERED: NOREPINEPHRINE 8 MG in IV NS 0.9% 242 ML IV PRN (14:30)
[2021-01-14] MEDS ORDERED: IV NS 0.9% 500 ML BAG IV ONE (14:30)
--- NOTE | 2021-01-14 14:30 | NUR ---
RN NOTE BEDSIDE SWALLOW EVAL PASSED, PT HAS NO TEETH NOR DENTURES
[2021-01-14] MEDS: methylPREDNISolone SOD SUCC 40 MG/ML VIAL IV SCH (17:35)
[2021-01-14] MEDS: MEMANTINE HCL 5 MG TABLET PO SCH (17:35)
[2021-01-14] MEDS: QUETIAPINE FUMARATE 25 MG TABLET PO SCH (17:35)
[2021-01-14] MEDS: *INSULIN REGULAR(HUMULIN R)HUM 100 UNIT/ML VIAL SQ PRN ×2 (18:19→22:07)
--- NOTE | 2021-01-14 19:00 | NUR ---
RN CLOSING ICU NOTE PT CONFUSED AND FORGETFUL, ON BILAT SOFT WRIST RESTRAINTS D/T PULLING LINES AND TUBING, CMS INTACT. PT BP DOWNTRENDING CURRENTLY 92/58 (70), PICC LINE INSERTION ORDERED, PHONE CONSENT OBTAINED FROM PT'S DAUGHTER. PT ON NC 3L SPO2 97%, NO S/S OF RESP DISTRESS. PT BEDSIDE MONITOR SINUS PATRICA TO NSR 50-60s. ALL PT SAFETY PRECAUTIONS IN PLACE, WILL ENDORSE CHRISTIAN TO ONCOMING RN
[2021-01-14] MEDS: ALBUTEROL FS 2.5 MG/0.5 ML VIAL.NEB NEB SCH (19:30)
[2021-01-14] MEDS: IPRATROPIUM NEB FS 0.5 MG/2.5 ML AMPUL.NEB NEB SCH (19:30)
--- NOTE | 2021-01-14 19:40 | NUR ---
RN NOTES RECEIVED PATIENT AWAKE ON BED ON STRICTLY ISOLATION DUE TO PENDING RESULT OF COVID PCR. PATIENT IS AOX 1-2 EASILY FORGOT DUE TO DEMENTIA. VERBALIZED CONCERNED AND NEEDS, SB ON MONITOR. NO ACUTE RESPIRATORY DISTRESS. SATURATION 97% ON O2 3LPM VIA NC. IV SITE ON RIGHT WRIST AND LAC INTACT AND PATENT HL BUT WILL ABOUT TO START LEVO ONCE PICC LINE IS INSERTED. KEPT PT CLEAN AND DRY. BILATERAL WRIST RESTRAINT KEPT IN PLACED DUE TO EPISODE OF GETTING OUT ON BED AND RISK OF FALL.
--- NOTE | 2021-01-14 20:15 | NUR ---
RN NOTES PICC LINE INSERTED ON RIAN TLC WITH NAV PICC LINE NURSE. TOLERATED WELL .
[2021-01-14] MEDS: SIMVASTATIN 20 MG TABLET PO SCH (21:27)
[2021-01-15] VITALS (30 sets, daily range): BP systolic 3–114; BP diastolic 36–66
--- NOTE | 2021-01-15 01:00 | NUR ---
RN NOTES PATIENT WOKE UP AND ANXIOUS TRYING TO GET OUT ON BED AND WANTED TO URINATE. REMINDED PATIENT AND EDUCATE REGARDING THE USE OF PAIZ CATHETER. EXPLAINED MULTIPLE TIMES AND EDUCATE ABOUT PAIZ PATIENT FORGETS EASILY. BED JOHN OFFERED TO USE FOR BM JUST IN CASE THAT NEEDS TO DO BM. KEPT PT CLEAN AND COMFORTABLE AND PATIENT BACK TO SLEEP ON BED.
[2021-01-15] MEDS: methylPREDNISolone SOD SUCC 40 MG/ML VIAL IV SCH ×5 (01:05→23:53)
[2021-01-15] MEDS: ALBUTEROL FS 2.5 MG/0.5 ML VIAL.NEB NEB SCH ×4 (01:30→19:30)
[2021-01-15] MEDS: IPRATROPIUM NEB FS 0.5 MG/2.5 ML AMPUL.NEB NEB SCH ×4 (01:30→19:30)
[2021-01-15] MEDS: LEVOFLOXACIN 500 MG /D5W 100ML 500 MG in PREMIX 1 EA IV SCH (04:17)
[2021-01-15 04:30] LABS: BASOPHILS % (AUTO) 0.1 % (0.0-2.0); HEMATOCRIT 32 % (33-45); HEMOGLOBIN 10.7 g/dL (11.5-14.8); LYMPHOCYTES # (AUTO) 9.7 K/uL (0.8-4.8); LYMPHOCYTES % (AUTO) 59.5 % (20.0-44.0); MEAN CORPUSCULAR HGB CONC 33 g/dl (31.0-36.0); MEAN CORPUSCULAR VOLUME 94 fL (82-100); MONOCYTES # (AUTO) 0.6 K/uL (0.1-1.30); MONOCYTES % (AUTO) 3.5 % (2.0-12.0); NEUTROPHILS % (AUTO) 36.9 % (43.0-81.0); PLATELET COUNT (AUTO) 131 K/uL (150-450); RED BLOOD CELL COUNT(AUTO) 3.44 MIL/uL (4.0-5.2); WHITE BLOOD COUNT (AUTO) 16.3 K/uL (4.3-11.0)
[2021-01-15 04:36] LABS: CALCIUM, SERUM 8.1 mg/dL (8.5-10.1); CREATININE 1.1 mg/dL (0.6-1.3); POTASSIUM 3.1 mmol/L (3.5-5.1)
[2021-01-15 04:47] LABS: THYROID STIMULATING HORMONE 1.058 uIU/mL (0.358-3.74)
--- NOTE | 2021-01-15 07:30 | NUR ---
OPENING NOTE: REPORT RECEIVED FROM VARGAS MONIQUE. PT CONFUSED, HISTORY OF DEMENTIA. RESTRAINTS IN PLACE TO KEEP PATIENT FROM GETTING OUT OF BED WITHOUT ASSISTANCE, ORDER IS CURRENT. COVID PCR PENDING, RAPID NEGATIVE ON 01/14/21, PT IS UNVACCINATED. PER DR. MCBRIDE PT IS MOST LIKELY NOT COVID POSITIVE, SYMPTOMS APPEAR TO BE FROM CHRONIC COPD. PT CHECKED ON HOURLY AND PRN BY NURSING STAFF.
[2021-01-15] MEDS ORDERED: POTASSIUM CHLORIDE 20 MEQ TAB.PRT.SR PO ONE (08:30)
[2021-01-15 08:40] LABS: ABG BASE EXCESS 2.2 mmol/L; ABG OXYGEN SATURATION 93.3 % (92.0-98.5); ABG PCO2 35.7 mmHg (35.0-45.0); ABG PH 7.473 (7.350-7.450); ABG PO2 63.2 mmHg (75.0-100.0); AaDO2 94.3 mmHg; COHb 0.5 % (0.5-1.5); MetHb 0.1 % (0.0-1.5); O2Hb 92.7 % (94.0-97.0); SITE, ABG Left Radial; VENT MODE, BG 2L NC
[2021-01-15] MEDS: DONEPEZIL 5 MG TABLET PO SCH (08:42)
[2021-01-15] MEDS: ASPIRIN 81 MG TAB.CHEW PO SCH (08:42)
[2021-01-15] MEDS: BLOOD SUGAR DIAGNOSTIC 1 EACH STRIP VI SCH ×4 (08:42→22:41)
[2021-01-15] MEDS: QUETIAPINE FUMARATE 25 MG TABLET PO SCH ×2 (08:42→17:46)
[2021-01-15] MEDS: DULOXETINE HCL 20 MG CAPSULE.DR PO SCH (08:42)
[2021-01-15] MEDS: PANTOPRAZOLE 40 MG TABLET.DR PO SCH (08:42)
[2021-01-15] MEDS: MEMANTINE HCL 5 MG TABLET PO SCH ×2 (08:42→17:46)
[2021-01-15] MEDS: ENOXAPARIN SODIUM 40 MG/0.4 ML DISP.SYRIN SQ SCH (08:43)
[2021-01-15] MEDS: ARIPIPRAZOLE 2 MG TABLET PO SCH (09:11)
[2021-01-15] MEDS: INSULIN REGULAR, HUMAN 100 UNIT/ML 3 ML VIAL SQ PRN ×2 (09:13→18:08)
--- NOTE | 2021-01-15 10:05 | NUR ---
PT TRANSFERRED TO ROOM 111-1 PER MD ORDERS. REPORT GIVEN TO EUGENIO MONIQUE. PT TRANSFERRED VIA BED WITH 2 RNS AT BEDSIDE. ALL PERSONAL ITEMS AND MEDICATIONS SENT WITH PATIENT.
[2021-01-15] MEDS: *INSULIN REGULAR(HUMULIN R)HUM 100 UNIT/ML VIAL SQ PRN ×2 (12:08→22:41)
--- NOTE | 2021-01-15 19:00 | NUR ---
RN NOTES PATIENT EDUCATED AND EXPLAINED REASON FOR WRIST RESTRAINTS , F/C AND NC , NON-COMPLIANT AND UNCOOPERATIVE WITH HELPING KEEP ALL DEVICES INTACT, PULLED OUT IV TWO TIMES DURING DAY SHIFT AND PULLED OUT F/C, CONTINUOUSLY TRYING TO UNDO THE WRIST RESTRAINTS AND FULL OF ANXIETY TENSION, AND SQUIRMING IN BED TO TRY TO LEAVE , EXPLAINED REASON AND PURPOSE FOR ALL AND CALMED DOWN FOR A LITTLE WHILE THEN CONTINUED TO PULL EVERYTHING OUT AGAIN, BED LOW TO FLOOR, WHEELS LOCKED, RE-APPLIED RESTRAINTS, NC, IV AND F/C HOWEVER HAS PULLED OUT ALL ITEMS AGAIN AT THIS TIME, WILL ENDORSE TO ONCOMING SHIFT OF THE SITUATION , CALL LIGHT IN REACH, BS READINGS TAKEN PER ORDER AND INSULIN PROVIDED PER SLIDING SCALE, WILL ENDORSE TO CONTINUE TO MONITOR PATIENT IS A HIGH FALL RISK AT THIS TIME. ALL SAFETY MEASURES IN PLACE
--- NOTE | 2021-01-15 19:50 | NUR ---
RN OPENING NOTE RECEIVED PT. IN BED, A/OX1. ON 2L O2 VIA NC, NO RESP DISTRESS OR SOB NOTED. (L) AC 18G FLUSHED, PATENT AND INTACT. DENIES ANY PAIN AT THIS TIME. PER MORNING SHIFT RN, PT. REMOVED PAIZ CATHETER AND IS NOW ON A DIAPER. CHARGE NURSE AWARE AND AGREES WITH KEEPING PT. ON DIAPER. (B) SOFT WRIST RESTRAINTS IN PLACE R/T CONTINUOS REMOVAL OF LINES AND TUBING. CIRCULATION, SKIN AND PULSES ASSESSED. FALL RISK PRECAUTIONS IN PLACE. SAFETY MEASURES IMPLEMENTED: BED LOCKED IN LOWEST POSITION, CALL LIGHT WITHIN REACH, SIDE RAILS UP X3, BED ALARM ON. NO ACUTE DISTRESS NOTED AT THIS TIME.
[2021-01-15] MEDS: SIMVASTATIN 20 MG TABLET PO SCH (21:26)
[2021-01-16] MEDS: ALBUTEROL FS 2.5 MG/0.5 ML VIAL.NEB NEB SCH ×4 (01:30→19:30)
[2021-01-16] MEDS: IPRATROPIUM NEB FS 0.5 MG/2.5 ML AMPUL.NEB NEB SCH ×4 (01:30→19:30)
--- NOTE | 2021-01-16 01:43 | NUR ---
RN NOTE PT. HAS NOT HAD ANY URINE OUTPUT SINCE START OF SHIFT. THERE IS MINIMAL BLADDER DISTENTION AND PT DENIES URGENCY OR NEED TO URINATE. BLADDER SCAN DONE, 140 ML URINE NOTED. CHARGE NURSE AWARE.
[2021-01-16 04:00] VITALS: BP 109/69
[2021-01-16] MEDS: LEVOFLOXACIN 500 MG /D5W 100ML 500 MG in PREMIX 1 EA IV SCH (04:54)
[2021-01-16] MEDS: methylPREDNISolone SOD SUCC 40 MG/ML VIAL IV SCH ×4 (06:44→23:12)
--- NOTE | 2021-01-16 07:08 | NUR ---
RN CLOSING NOTE PT. IN BED, A/OX1. ON 2L O2 VIA NC, NO RESP DISTRESS OR SOB NOTED. (L) AC 18G PULLED OUT BY PT, PT CLEANED AND CLEAN DRESSING PLACED. NO TRAUMA TO AREA NOTED. (R) UA PICC LINE PATENT AND INTACT. DENIES ANY PAIN AT THIS TIME. PER MORNING SHIFT RN, PT. REMOVED PAIZ CATHETER AND IS NOW ON A DIAPER AND ABLE TO URINATE WITH ENCOURAGEMENT. CHARGE NURSE AWARE AND AGREES WITH KEEPING PT. ON DIAPER. (B) SOFT WRIST RESTRAINTS IN PLACE R/T CONTINUOS REMOVAL OF LINES AND TUBING. CIRCULATION, SKIN AND PULSES ASSESSED. FALL RISK PRECAUTIONS IN PLACE. AL ORDERS IMPLEMENTED THROUGHOUT SHIFT. PT. KEPT CLEAN AND DRY. PT. REORIENTED TO UNIT CONTINUOUSLY DUE TO DISTRESS AND ANXIETY R/T TO DEMENTIA AND MENTAL STATUS. SAFETY MEASURES IMPLEMENTED: BED LOCKED IN LOWEST POSITION, CALL LIGHT WITHIN REACH, SIDE RAILS UP X3, BED ALARM ON. NO ACUTE DISTRESS NOTED AT THIS TIME. WILL ENDORSE TO MORNING SHIFT RN
[2021-01-16 07:27] LABS: HEMATOCRIT 33 % (33-45); HEMOGLOBIN 11.1 g/dL (11.5-14.8); MEAN CORPUSCULAR HGB CONC 33 g/dl (31.0-36.0); MEAN CORPUSCULAR VOLUME 93 fL (82-100); MONOCYTES # (AUTO) 0.7 K/uL (0.1-1.30); MONOCYTES % (AUTO) 2.8 % (2.0-12.0); NEUTROPHILS # (AUTO) 8.7 K/uL (1.8-8.9); NEUTROPHILS % (AUTO) 34.2 % (43.0-81.0); PLATELET COUNT (AUTO) 155 K/uL (150-450); RED BLOOD CELL COUNT(AUTO) 3.59 MIL/uL (4.0-5.2); WHITE BLOOD COUNT (AUTO) 25.5 K/uL (4.3-11.0)
[2021-01-16] MEDS: BLOOD SUGAR DIAGNOSTIC 1 EACH STRIP VI SCH ×4 (07:49→22:36)
[2021-01-16] MEDS: INSULIN REGULAR, HUMAN 100 UNIT/ML 3 ML VIAL SQ PRN ×3 (07:51→16:30)
--- NOTE | 2021-01-16 08:01 | NUR ---
RN OPENING NOTES; RECEIVED PT SCREAMING IN BED. PT AWAKE AND ORIENTED X1. PT SEEMS TO UNDERSTAND SIMPLE DIRECTIONS. PT BED LOCKED, IN LOWEST POSITION WITH SIDE RAILS X2 UP. PT ON SOFT WRIST RESTRAINTS, CHECKED WITH SKIN INTACT. PT IS NOW RESTING WITH CALL LIGHT WITHIN REACH. WILL CONTINUE TO MONITOR.
[2021-01-16 08:10] LABS: CALCIUM, SERUM 8.5 mg/dL (8.5-10.1); CREATININE 0.9 mg/dL (0.6-1.3); MAGNESIUM 2.7 mg/dL (1.8-2.4); POTASSIUM 3.6 mmol/L (3.5-5.1)
[2021-01-16] MEDS: ASPIRIN 81 MG TAB.CHEW PO SCH (08:41)
[2021-01-16] MEDS: QUETIAPINE FUMARATE 25 MG TABLET PO SCH ×2 (08:41→16:07)
[2021-01-16] MEDS: MEMANTINE HCL 5 MG TABLET PO SCH ×2 (08:41→16:07)
[2021-01-16] MEDS: DONEPEZIL 5 MG TABLET PO SCH (08:41)
[2021-01-16] MEDS: ARIPIPRAZOLE 2 MG TABLET PO SCH (08:41)
[2021-01-16] MEDS: DULOXETINE HCL 20 MG CAPSULE.DR PO SCH (08:42)
[2021-01-16] MEDS: PANTOPRAZOLE 40 MG TABLET.DR PO SCH (08:45)
[2021-01-16] MEDS: ENOXAPARIN SODIUM 40 MG/0.4 ML DISP.SYRIN SQ SCH (08:45)
[2021-01-16 12:00] VITALS: BP 115/73
--- NOTE | 2021-01-16 19:12 | NUR ---
RN CLOSING NOTES PATIENT ACTIVE, A/O BUT FORGETFUL. NO DISTRESS NOTED. MD DOES NOT WANT PATIENT TO BE ON SOFT WRIST RESTRAINTS. RESTRAINTS D/C DURING SHIFT. PT HAS BEEN CALM AND COOPERATIVE THROUGHOUT THE DAY. BED REMAINS LOW AND LOCKED, HOB ELEVATED IN SEMI FOWLERS, SIDE RAILS UP X3, CALL LIGHT WITHIN REACH. ENDORSED TO LAMP WIRER RN. PT IN STABLE CONDITION UPON ENDORSEMENT.
--- NOTE | 2021-01-16 19:15 | NUR ---
MS/RN OPENING NOTE RECEIVED PATIENT RESTING IN BED. AWAKE, ALERT AND ORIENTED X 2. ABLE TO MAKE NEEDS KNOWN. DENIES PAIN AT THIS TIME. CONTINUES ON 3L O2 VIA NC WITH NO S/SX OF RESPIRATORY DISTRESS NOTED. IV ACCESS TO RIGHT UPPER ARM PICC LINE INTACT, PATENT AND SALINE LOCKED. CONTINUES ON PUREED DIET WITH NO S/SX OF ASPIRATION NOTED. PATIENT AMBULATORY WITH STEADY GAIT. CALL LIGHT WITHIN REACH. ASPIRATION, FALL AND SAFETY PRECAUTIONS MAINTAINED. WILL CONTINUE TO MONITOR.
[2021-01-16 20:00] VITALS: BP 113/74
[2021-01-16] MEDS: SIMVASTATIN 20 MG TABLET PO SCH (22:36)
[2021-01-16] MEDS: *INSULIN REGULAR(HUMULIN R)HUM 100 UNIT/ML VIAL SQ PRN (23:14)
[2021-01-17] MEDS: ALBUTEROL FS 2.5 MG/0.5 ML VIAL.NEB NEB SCH ×2 (01:30→07:35)
[2021-01-17] MEDS: IPRATROPIUM NEB FS 0.5 MG/2.5 ML AMPUL.NEB NEB SCH ×2 (01:30→07:35)
[2021-01-17 04:00] VITALS: BP 124/81
[2021-01-17] MEDS: methylPREDNISolone SOD SUCC 40 MG/ML VIAL IV SCH ×2 (05:09→12:04)
[2021-01-17] MEDS: LEVOFLOXACIN 500 MG /D5W 100ML 500 MG in PREMIX 1 EA IV SCH (05:09)
[2021-01-17 07:46] LABS: HEMATOCRIT 34 % (33-45); HEMOGLOBIN 11.1 g/dL (11.5-14.8); LYMPHOCYTES # (AUTO) 16.7 K/uL (0.8-4.8); LYMPHOCYTES % (AUTO) 69.3 % (20.0-44.0); MEAN CORPUSCULAR HGB CONC 33 g/dl (31.0-36.0); MEAN CORPUSCULAR VOLUME 93 fL (82-100); MONOCYTES # (AUTO) 0.6 K/uL (0.1-1.30); MONOCYTES % (AUTO) 2.6 % (2.0-12.0); NEUTROPHILS # (AUTO) 6.8 K/uL (1.8-8.9); NEUTROPHILS % (AUTO) 28.1 % (43.0-81.0); PLATELET COUNT (AUTO) 147 K/uL (150-450); RED BLOOD CELL COUNT(AUTO) 3.65 MIL/uL (4.0-5.2); WHITE BLOOD COUNT (AUTO) 24.1 K/uL (4.3-11.0)
[2021-01-17] MEDS ORDERED: PRED20TA PO (07:46)
[2021-01-17] MEDS ORDERED: LEVO500T90 PO (07:46)
[2021-01-17] MEDS: BLOOD SUGAR DIAGNOSTIC 1 EACH STRIP VI SCH ×2 (07:50→12:07)
--- NOTE | 2021-01-17 07:54 | NUR ---
RN OPENING NOTES RECEIVED PATIENT AWAKE IN BED. ALERT AND ORIENTED X2. NO SIGNS OR SYMPTOMS OF DISTRESS NOTED. NO SOB. NO COMPLAINTS OF PAIN AT THIS TIME. PATIENT ON ROOM AIR, TOLERATING WELL. IV ACCESS RIAN PICC LINE PATENT AND INTACT. SAFETY MEASURES IN PLACE WITH BED AT LOW POSITION, SIDE RAILS UP X2. CALL LIGHT IS WITHIN REACH. WILL CONTINUE TO MONITOR PATIENT THROUGHOUT SHIFT.
[2021-01-17] MEDS: *INSULIN REGULAR(HUMULIN R)HUM 100 UNIT/ML VIAL SQ PRN ×2 (07:59→12:07)
[2021-01-17 08:19] LABS: CALCIUM, SERUM 8.3 mg/dL (8.5-10.1); MAGNESIUM 2.8 mg/dL (1.8-2.4); POTASSIUM 3.6 mmol/L (3.5-5.1)
[2021-01-17] MEDS: QUETIAPINE FUMARATE 25 MG TABLET PO SCH (08:19)
[2021-01-17] MEDS: PANTOPRAZOLE 40 MG TABLET.DR PO SCH (08:19)
[2021-01-17] MEDS: MEMANTINE HCL 5 MG TABLET PO SCH (08:19)
[2021-01-17] MEDS: DULOXETINE HCL 20 MG CAPSULE.DR PO SCH (08:19)
[2021-01-17] MEDS: ASPIRIN 81 MG TAB.CHEW PO SCH (08:20)
[2021-01-17] MEDS: DONEPEZIL 5 MG TABLET PO SCH (08:20)
[2021-01-17] MEDS: ENOXAPARIN SODIUM 40 MG/0.4 ML DISP.SYRIN SQ SCH (08:21)
[2021-01-17] MEDS: ARIPIPRAZOLE 2 MG TABLET PO SCH (08:23)
[2021-01-17 12:00] VITALS: BP 124/74
== END 2021-01-17 13:55 | disposition home or self-care (01) | DRG 189 ==
LOC: ER 04:13 → ICU 12:34 → MEDSG1 01-15 09:56
PROVIDERS: ADMIT Internal Medicine; ATTEND Internal Medicine
PROC: 02HV33Z Insertion of Infusion Device into Superior Vena Cava, Percutaneous Approach (ICD-10-PCS; principal; 2021-01-14)
PROC: B548ZZA Ultrasonography of Superior Vena Cava, Guidance (ICD-10-PCS; 2021-01-14)
DX: J96.01 Acute respiratory failure with hypoxia (principal); J44.1 Chronic obstructive pulmonary disease with (acute) exacerbation; E87.2 Acidosis; G93.40 Encephalopathy, unspecified; J96.02 Acute respiratory failure with hypercapnia; E78.5 Hyperlipidemia, unspecified; F03.90 Unspecified dementia, unspecified severity, without behavioral disturbance, psychotic disturbance, mood disturbance, and anxiety; Z20.822 Contact with and (suspected) exposure to COVID-19; Z98.82 Breast implant status; Z88.0 Allergy status to penicillin; Z88.8 Allergy status to other drugs, medicaments and biological substances; F17.200 Nicotine dependence, unspecified, uncomplicated; Z79.899 Other long term (current) drug therapy; Z79.51 Long term (current) use of inhaled steroids; I10 Essential (primary) hypertension; R73.9 Hyperglycemia, unspecified; E87.6 Hypokalemia; F09 Unspecified mental disorder due to known physiological condition; T38.0X5A Adverse effect of glucocorticoids and synthetic analogues, initial encounter; Y92.9 Unspecified place or not applicable; D72.829 Elevated white blood cell count, unspecified
CPT/HCPCS: 36415; 36600; 71045-TC; 80048-TC; 80053-TC; 81001; 82550-TC; 82728-TC; 82803-TC; 82962-TC; 83605-TC; 83615-TC; 83735-TC; 83880; 84443-TC; 84484-TC; 85025-TC; 85378-TC; 85385-TC; 85730-TC; 86140-TC; 87040-TC; 87081-TC; 87086-TC; 94760-TC; 94799-TC; A4216; A4624; C9803; G0378; J1650; J1815; J1940; J1956; J2920; J2930; J7040; J7050; Q9967; U0003

== ENCOUNTER 2021-07-26 10:09 | Emergency (ER) | payer OTHER ==
[~2021-07-26] VITALS: Ht 165.1 cm; Wt 57.3 kg
[~2021-07-26 10:09] MED LIST changes: +ALBU18HF2 INH; +ARIP2TAB19 PO; +ASPI-1169 PO; -BENA20TA9 PO; +HYDR12.55 PO; +LEVO500T90 PO; +PRED20TA PO; +PROP10TA68 PO; +QUET25TA PO; +TRAM50TA2 PO
--- NOTE | 2021-07-26 10:35 | NUR ---
[id number] FROM HOME FOR BRIGHT RED BLOOD UPON DEFECATION TODAY AM. DENIES PAIN. DENIES N/V. ABDOMEN SOFT AND NON-DISTENDED. IN ROOM AIR AND DENIES SOB. RESPIRATION REGULAR AND UNLABORED. WILL CONTINUE TO MONITOR THE PATIENT.
--- NOTE | 2021-07-26 10:45 | NUR ---
MOVE SHEET SUBMITTED.
--- NOTE | 2021-07-26 10:47 | NUR ---
COVID ANTIGEN SWAB DONE AND SENT TO THE LAB
[2021-07-26 11:04] LABS: BASOPHILS % (AUTO) 0.2 % (0.0-2.0); EOSINOPHILS % (AUTO) 1.6 % (0.0-6.0); HEMATOCRIT 38 % (33-45); HEMOGLOBIN 12.4 g/dL (11.5-14.8); LYMPHOCYTES # (AUTO) 7.6 K/uL (0.8-4.8); LYMPHOCYTES % (AUTO) 60.8 % (20.0-44.0); MEAN CORPUSCULAR HGB CONC 33 g/dl (31.0-36.0); MEAN CORPUSCULAR VOLUME 91 fL (82-100); MONOCYTES # (AUTO) 0.6 K/uL (0.1-1.30); MONOCYTES % (AUTO) 5.1 % (2.0-12.0); NEUTROPHILS % (AUTO) 32.3 % (43.0-81.0); PLATELET COUNT (AUTO) 149 K/uL (150-450); RED BLOOD CELL COUNT(AUTO) 4.19 MIL/uL (4.0-5.2); WHITE BLOOD COUNT (AUTO) 12.5 K/uL (4.3-11.0)
[2021-07-26 11:18] LABS: CALCIUM, SERUM 8.8 mg/dL (8.5-10.1); CARBON DIOXIDE 29 mmol/L (21-32); CHLORIDE 105 mmol/L (98-107); CREATININE 0.9 mg/dL (0.6-1.3); GLUCOSE 98 mg/dL (74-106); POTASSIUM 4.2 mmol/L (3.5-5.1); SODIUM SERUM 141 mmol/L (136-145); UREA NITROGEN, BLOOD 22 mg/dL (7-18)
[2021-07-26 11:25] LABS: ALANINE AMINOTRANSFERASE 20 U/L (12-78); ALBUMIN 3.4 g/dL (3.4-5.0); ALKALINE PHOSPHATASE 79 U/L (46-116); ASPARTATE AMINOTRANSFERASE 17 U/L (15-37); BILIRUBIN,DIRECT 0.1 mg/dL (0.0-0.2); BILIRUBIN,TOTAL 0.4 mg/dL (0.2-1.0); LIPASE 257 U/L (73-393); TOTAL PROTEIN, SERUM 6.6 g/dL (6.4-8.2)
--- NOTE | 2021-07-26 12:14 | NUR ---
FAXED CLINICALS TO [facility] ASSISTANT MANAGER ESSIE [phone]. PER CM, DR RUIZ WILL CALL ER FOR PEER TO PEER
[2021-07-26] MEDS ORDERED: IOHEXOL-300 100 ML VIAL IV ONE (12:18)
[2021-07-26] MEDS ORDERED: IV NS 0.9% 250 ML IV ONE (12:18)
[2021-07-26] MEDS ORDERED: CT SWABBABLE VALVE TRANS SET 1 EA INFUS.SET MC ONE (12:18)
--- NOTE | 2021-07-26 12:25 | NUR ---
THE PATIENT IS TAKEN TO CT VIA [facility]
--- NOTE | 2021-07-26 12:35 | NUR ---
THE PATIENT IS BACK FROM CT VIA [facility]
--- NOTE | 2021-07-26 12:54 | NUR ---
DR. KEANE SPEAKING WITH DR. JAUREGUI. WILL SEE IF BED IS AVAILABLE AT [facility].
[2021-07-26 13:51] VITALS: BP 120/58
[2021-07-26 14:26] LABS: BILIRUBIN,URINE NEGATIVE (NEGATIVE); COLOR,URINE YELLOW (YELLOW); LEUKOCYTE ESTERASE ,URINE NEGATIVE (NEGATIVE); NITRITE, URINE NEGATIVE (NEGATIVE); PH,URINE 6.5 (5.0-8.0); PROTEIN,URINE NEGATIVE (NEGATIVE); UGLUCOSE NEGATIVE (NEGATIVE); UROBILINOGEN,URINE 0.2 EU/dL (0.2)
[2021-07-26 14:37] LABS: RBC,URINE 0-2 /HPF (0-2); WBC,URINE 0-2 /HPF (0-3)
[2021-07-26 14:38] LABS: BACTERIA,URINE Few /HPF (None Seen); SQUAMOUS EPITHELIAL CELL,UR 0-2 /HPF (None Seen)
--- NOTE | 2021-07-26 14:52 | NUR ---
PT ACCEPTED TO [facility] ROOM ACF12 ENEIDA GARCÍA [phone] CAR WORKER BY JOSE BROCK ETA IS 1800. PER LEANN KINSEY AT [facility] [phone]
--- NOTE | 2021-07-26 18:10 | NUR ---
REPORT GIVEN TO NURSE QUEZADA FROM [facility]
--- NOTE | 2021-07-26 18:24 | NUR ---
REPORT GIVEN TO AMBULANCE STAFF. THE PATIENT IS TRANSFERED TO [facility] IN STABLE CONDITION.
== END 2021-07-26 18:27 | disposition short-term general hospital (02) ==
LOC: ER 10:13
DX: K92.2 Gastrointestinal hemorrhage, unspecified (principal); Z20.822 Contact with and (suspected) exposure to COVID-19; J44.9 Chronic obstructive pulmonary disease, unspecified; I10 Essential (primary) hypertension; F03.90 Unspecified dementia, unspecified severity, without behavioral disturbance, psychotic disturbance, mood disturbance, and anxiety; R10.9 Unspecified abdominal pain; Z79.899 Other long term (current) drug therapy; I49.3 Ventricular premature depolarization
CPT/HCPCS: 36415; 74177; 80048; 80076; 81001; 83690; 84484; 85025; 85730; 86850; 87426; 93005; 99285; J7050; Q9967; C9803

== ENCOUNTER 2021-09-07 12:11 | Emergency (ER) | payer OTHER ==
[~2021-09-07] VITALS: Ht 165.1 cm; Wt 58.1 kg
--- NOTE | 2021-09-07 12:21 | NUR ---
BIB [id number] FROM HOME FOR WORSENING "BUTT" PAIN X 7 MONTHS. AAOX3, BREATHING EVEN AND UNLABORED. NO EVIDENCE OF REDNESS, ABRASIONS, OR BLEEDING. TO ER BED 10. REBECA PLACED UNDER PT.
--- NOTE | 2021-09-07 12:35 | NUR ---
[employer]BE M[employer]DER SPEAKING TO PT AT BEDSIDE
--- NOTE | 2021-09-07 12:38 | NUR ---
LAB AT BEDSIDE
--- NOTE | 2021-09-07 12:49 | NUR ---
HANNA (PHOTOGRAPH EDITOR) - [phone]
[2021-09-07 13:13] LABS: BASOPHILS % (AUTO) 0.2 % (0.0-2.0); EOSINOPHILS % (AUTO) 0.5 % (0.0-6.0); HEMATOCRIT 43 % (33-45); HEMOGLOBIN 13.7 g/dL (11.5-14.8); LYMPHOCYTES # (AUTO) 18.4 K/uL (0.8-4.8); LYMPHOCYTES % (AUTO) 72.9 % (20.0-44.0); MEAN CORPUSCULAR HGB CONC 32 g/dl (31.0-36.0); MEAN CORPUSCULAR VOLUME 90 fL (82-100); MONOCYTES # (AUTO) 0.6 K/uL (0.1-1.30); MONOCYTES % (AUTO) 2.5 % (2.0-12.0); NEUTROPHILS % (AUTO) 23.9 % (43.0-81.0); PLATELET COUNT (AUTO) 229 K/uL (150-450); RED BLOOD CELL COUNT(AUTO) 4.73 MIL/uL (4.0-5.2); WHITE BLOOD COUNT (AUTO) 25.2 K/uL (4.3-11.0)
[2021-09-07 13:43] LABS: ALBUMIN 3.8 g/dL (3.4-5.0); CALCIUM, SERUM 9.3 mg/dL (8.5-10.1); POTASSIUM 3.7 mmol/L (3.5-5.1)
[2021-09-07] MEDS ORDERED: LEVOFLOXACIN 750 MG /D5W 150ML 150 ML IV ONE (13:54)
[2021-09-07] MEDS ORDERED: LEVOFLOXACIN 750 MG /D5W 150ML PIGGYBACK IV ONE (14:00)
--- NOTE | 2021-09-07 14:09 | NUR ---
lab at bedside for blood cultures to be drawn prior to antibiotic administration
--- NOTE | 2021-09-07 14:10 | NUR ---
covid sample obtained and sent to lab
[2021-09-07 14:22] LABS: BILIRUBIN,DIRECT 0.1 mg/dL (0.0-0.2); BILIRUBIN,TOTAL 0.5 mg/dL (0.2-1.0); TOTAL PROTEIN, SERUM 7.2 g/dL (6.4-8.2)
--- NOTE | 2021-09-07 14:37 | NUR ---
DR ALEX PLEITEZ
--- NOTE | 2021-09-07 14:38 | NUR ---
urine sample obtained and given to lab
--- NOTE | 2021-09-07 14:44 | NUR ---
pt taken to CT
[2021-09-07] MEDS ORDERED: IOHEXOL-300 100 ML VIAL IV ONE (14:46)
[2021-09-07] MEDS ORDERED: IV NS 0.9% 250 ML IV ONE (14:46)
[2021-09-07] MEDS ORDERED: CT SWABBABLE VALVE TRANS SET 1 EA INFUS.SET MC ONE (14:46)
[2021-09-07 15:29] LABS: BILIRUBIN,URINE NEGATIVE (NEGATIVE); COLOR,URINE YELLOW (YELLOW); LEUKOCYTE ESTERASE ,URINE NEGATIVE (NEGATIVE); NITRITE, URINE NEGATIVE (NEGATIVE); PH,URINE 6.5 (5.0-8.0); PROTEIN,URINE NEGATIVE (NEGATIVE); UGLUCOSE NEGATIVE (NEGATIVE); UROBILINOGEN,URINE 0.2 EU/dL (0.2)
--- NOTE | 2021-09-07 15:43 | NUR ---
CALLED AND SPOKE WITH PREM HOLT. PATIENT ACCEPTED TO [facility] BY DR. JOHN. WILL CALL US BACK FOR ROOM NUMBER AND TEL# TO GIVE REPORT. PRIMARY RN AWARE.
[2021-09-07 15:49] LABS: BACTERIA,URINE None seen /HPF (None Seen); MUCUS,URINE Few /LPF (None Seen); RBC,URINE 0-2 /HPF (0-2); WBC,URINE 0-2 /HPF (0-3)
--- NOTE | 2021-09-07 15:53 | NUR ---
YANET, CM-REGAL [phone].
[2021-09-07 16:33] VITALS: BP 131/81
--- NOTE | 2021-09-07 17:47 | NUR ---
CALLED AND SPOKE WITH VISH HOLT. WILL CALL US BACK FOR AN UPDATE.
--- NOTE | 2021-09-07 18:30 | NUR ---
SPOKE WITH VISH HOLT. [facility] GOING TO ROOM 307-1. TEL# [phone] TO GIVE REPORT. PRIMARY RN AWARE.
--- NOTE | 2021-09-07 18:31 | NUR ---
[facility] AUTH# [id number].
--- NOTE | 2021-09-07 19:00 | NUR ---
REPORT GIVEN TO FACILITY
--- NOTE | 2021-09-07 19:36 | NUR ---
TRANSPORTATION HERE. VS STABLE. PT TRANSFERRED TO FACILITY.
== END 2021-09-07 19:37 | disposition short-term general hospital (02) ==
LOC: ER 12:14
DX: F03.90 Unspecified dementia, unspecified severity, without behavioral disturbance, psychotic disturbance, mood disturbance, and anxiety (principal); K62.89 Other specified diseases of anus and rectum; D72.829 Elevated white blood cell count, unspecified; R62.7 Adult failure to thrive; Z20.822 Contact with and (suspected) exposure to COVID-19; I49.3 Ventricular premature depolarization
CPT/HCPCS: 36415; 71045; 74177; 80048; 80076; 81001; 83605; 85025; 87040 ×2; 87086; 87426; 93005; 96365; 99285; J1956; J7050; Q9967; C9803

== ENCOUNTER 2021-11-10 15:13 | Emergency (ER) | payer OTHER ==
[~2021-11-10] VITALS: Ht 165.1 cm; Wt 58.1 kg
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
--- NOTE | 2021-11-10 15:58 | NUR ---
MELINDA STEWART [phone] (CELL) OR [phone]
--- NOTE | 2021-11-10 16:51 | NUR ---
CALLED MELNIDA (DAUGHTER) AND WAS NOTIFIED OF PT'S DISCHARGE. WAS NOTIFIED THAT SHE WILL CALL CAREGIVER TO [employer] SUPERVISOR THE PT
--- NOTE | 2021-11-10 17:19 | NUR ---
FOLLOWED UP WITH DAUGHTER MELINDA, STATED THE CAREGIVER WILL GOLD MINER BLASTING PT IN AN HOUR
--- NOTE | 2021-11-10 19:23 | NUR ---
Patient discharged to home in stable condition. Written and verbal after care instructions given. Patient verbalizes understanding of instruction. Addendum: 11/10/21 at 1923 by PAOLA THE PATIENT IS PICKED UP BY HER CAREGIVER.
[2021-11-10 19:24] VITALS: BP 118/65
== END 2021-11-10 19:24 | disposition home or self-care (01) ==
LOC: ER 15:16
DX: S00.83XA Contusion of other part of head, initial encounter (principal); I10 Essential (primary) hypertension; F17.200 Nicotine dependence, unspecified, uncomplicated; Z98.82 Breast implant status; Z88.8 Allergy status to other drugs, medicaments and biological substances; Z79.899 Other long term (current) drug therapy; Y04.2XXA Assault by strike against or bumped into by another person, initial encounter; Y93.89 Activity, other specified; Y92.89 Other specified places as the place of occurrence of the external cause; Y99.8 Other external cause status
CPT/HCPCS: 70450-TC; 70486-TC; 71045-TC; 72125-TC

== ENCOUNTER 2021-11-26 11:35 | Emergency (ER) | payer OTHER ==
[~2021-11-26] VITALS: Ht 162.6 cm; Wt 63.5 kg
--- NOTE | 2021-11-26 12:00 | NUR ---
JOHN CAMPOS From Home "Getting more disoriented/confused- Demented. Family looking for memory Care". AMBULATORY, PLACED ON BED, AWAKE ALERT CONFUSED.
--- NOTE | 2021-11-26 12:15 | NUR ---
BLOOD DRAWN SENT TO LAB
[2021-11-26 12:27] LABS: BASOPHILS # (AUTO) 0.1 K/uL (0.0-0.2); BASOPHILS % (AUTO) 0.4 % (0.0-2.0); EOSINOPHILS % (AUTO) 1.4 % (0.0-6.0); HEMATOCRIT 39 % (33-45); HEMOGLOBIN 12.6 g/dL (11.5-14.8); LYMPHOCYTES # (AUTO) 10.4 K/uL (0.8-4.8); MEAN CORPUSCULAR HGB CONC 32 g/dl (31.0-36.0); MEAN CORPUSCULAR VOLUME 88 fL (82-100); MONOCYTES # (AUTO) 0.5 K/uL (0.1-1.30); MONOCYTES % (AUTO) 3.3 % (2.0-12.0); NEUTROPHILS # (AUTO) 2.6 K/uL (1.8-8.9); NEUTROPHILS % (AUTO) 18.9 % (43.0-81.0); PLATELET COUNT (AUTO) 164 K/uL (150-450); RED BLOOD CELL COUNT(AUTO) 4.45 MIL/uL (4.0-5.2); WHITE BLOOD COUNT (AUTO) 13.7 K/uL (4.3-11.0)
[2021-11-26 12:35] LABS: CARBON DIOXIDE 30 mmol/L (21-32); CHLORIDE 105 mmol/L (98-107); CREATININE 0.9 mg/dL (0.6-1.3); GLUCOSE 80 mg/dL (74-106); POTASSIUM 3.9 mmol/L (3.5-5.1); SODIUM SERUM 140 mmol/L (136-145); UREA NITROGEN, BLOOD 13 mg/dL (7-18)
--- NOTE | 2021-11-26 12:40 | NUR ---
URINE SAMPLE SENT TO LAB
[2021-11-26 12:41] LABS: ALANINE AMINOTRANSFERASE 19 U/L (12-78); ALBUMIN 3.8 g/dL (3.4-5.0); ALKALINE PHOSPHATASE 87 U/L (46-116); ASPARTATE AMINOTRANSFERASE 19 U/L (15-37); BILIRUBIN,DIRECT 0.1 mg/dL (0.0-0.2); BILIRUBIN,TOTAL 0.4 mg/dL (0.2-1.0)
[2021-11-26 12:49] LABS: ACETAMINOPHEN < 10 ug/ml (10-30); ALCOHOL, BLOOD < 2 mg/dL (0-0)
[2021-11-26 13:08] LABS: BILIRUBIN,URINE NEGATIVE (NEGATIVE); COLOR,URINE YELLOW (YELLOW); LEUKOCYTE ESTERASE ,URINE NEGATIVE (NEGATIVE); NITRITE, URINE NEGATIVE (NEGATIVE); PROTEIN,URINE NEGATIVE (NEGATIVE); UGLUCOSE NEGATIVE (NEGATIVE); UROBILINOGEN,URINE 0.2 EU/dL (0.2)
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
[2021-11-26] MEDS ORDERED: LORAZEPAM INJ 2 MG/ML VIAL ONE (13:28)
[2021-11-26] MEDS: LORAZEPAM INJ 2 MG/ML VIAL IM ONE (13:30)
[2021-11-26 13:47] LABS: BACTERIA,URINE Few /HPF (None Seen); WBC,URINE NONE SEEN /HPF (0-3)
--- NOTE | 2021-11-26 15:13 | NUR ---
SPOKE TO DAUGHTER AND INFORMED THAT PATIENT WILL BE TRANSFERRED TO [facility] ([facility]) [phone]. REBECCA VELA WILL SPEAK TO THEM AND WILL SEND CLINICALS FOR ACCEPTANCE.
--- NOTE | 2021-11-26 15:33 | NUR ---
SS Note: REBECCA called the patient's daughter, Mary Flores [phone] to gather collateral information. Mary states that she lives out of stated in [place]. Mary stated the pt. lives at home[[address] [place] [facility] [address]; [phone]] with caregivers. However, Mary states she no longer wants the pt. living in her home and would prefer the pt. live in a facility for extra care nd protection. Mary stated that she has found a facility for the pt. to reside in: [facility][[address] [facility] [address]]. Mary stated she wanst the pt. to be discharged to this facility. Mary stated she will be apying out of pocket for the facility. Mary stated if the insurance cannot pay for transportation thats he has family friend that can provide transportation. REBECCA Hernandez stted that she ahs been very frustrated with the medical Group managing the pt.'s [facility] REBECCA informed her that she can request for alternate medical group or possibly no eical grup and recommended that Mary call [employer]. Mary is agreeable and stated she will do so. REBECCA called [facility] and yony to the website project manager, Vania tel:[phone] who states that she has spoke to the daughter, Mary and that Mary will be paying out of pocket for the patient's stay there. Vania requested clinicals. REBECCA faxed clinicals to Vania at efax: [phone]. Per vania she will review the clinials and notify this REBECCA of acceptance. Noted. REBECCA will be available as needed. REBECCA notified ED nurse, John.
--- NOTE | 2021-11-26 15:46 | NUR ---
Pt. figueroa accepted to [facility][[address] [address]]. Tech to arrange transport and report to be given to Vania tel:[phone]. REBECCA notified ED nursebianca
--- NOTE | 2021-11-26 16:22 | NUR ---
Correct address: [facility][[address] [facility] [address]]
--- NOTE | 2021-11-26 16:50 | NUR ---
[facility] CALLED FOR TRANSPORT WITH ETA OF 1800 PER ALEXANDER.
--- NOTE | 2021-11-26 17:14 | NUR ---
[facility] [address] here to transport pt. Report given to EMT Lauren
[2021-11-26 17:15] VITALS: BP 152/90
--- NOTE | 2021-11-26 17:15 | NUR ---
RAPID COVID SWAB DONE AND SENT TO LAB
== END 2021-11-26 17:15 | disposition home or self-care (01) ==
LOC: ER 11:51
DX: F03.90 Unspecified dementia, unspecified severity, without behavioral disturbance, psychotic disturbance, mood disturbance, and anxiety (principal); F17.210 Nicotine dependence, cigarettes, uncomplicated; I10 Essential (primary) hypertension; Z88.6 Allergy status to analgesic agent; Z88.0 Allergy status to penicillin; Z20.822 Contact with and (suspected) exposure to COVID-19
CPT/HCPCS: 36415; 80048; 80076; 80143; 80307; 80320; 81001; 85025; 87426; 96372; 99285; J2060; C9803; G0480